=== PATIENT | male | born 1940 | race Caucasian/White ===

== ENCOUNTER 2017-02-07 16:18 | Inpatient (IN) | payer MEDICARE, MEDICAID ==
--- NOTE | 2017-02-07 16:34 | ED Physician Chart ---
Chief Complaint/HPI - Patient Information Date Seen:: 02/07/17 Time Seen:: 16:15 Chief Complaint:: agitation History of Present Illness:: onset x 2 days of agitation; no SIs reported; no C/P, dyspnea, Abd pain, A/N/V/D /C, fever, chills, ALOC, LOC Allergies:: Allergies Allergy/AdvReac Type Severity Reaction Status Date / Time codeine Allergy Verified 02/07/17 16:30 Historian:: Patient, EMS Review:: Nurse's Note Reviewed, EMS run form Reviewed, Transfer documents Reviewed Review of Systems - Review of Systems General/Constitutional: No fever, No chills, No weight loss, No weakness, No diaphoresis, No edema, No loss of appetite Skin: No skin lesions, No rash, No bruising Head: No headache, No light-headedness Eyes: No loss of vision, No pain, No diplopia ENT: No earache, No nasal drainage, No sore throat, No tinnitus Neck: No neck pain, No swelling, No thyromegaly, No stiffness, No mass noted Cardio Vascular: No chest pain, No palpitations, No PND, No orthopnea, No edema Pulmonary: No SOB, No cough, No sputum, No wheezing GI: No nausea, No vomiting, No diarrhea, No pain, No melena, No hematochezia, No constipation, No hematemesis G/U: No dysuria, No frequency, No hematuria Musculoskeletal: No bone or joint pain, No back pain, No muscle pain Endocrine: No polyuria, No polydipsia Psychiatric: Prior psych history, No prior psych history, Depression, No depression, Anxiety, No anxiety, No suicidal ideation Hematopoietic: No bruising, No lymphadenopathy Allergic/Immuno: No urticaria, No angioedema Neurological: No syncope, No focal symptoms, No weakness, No paresthesia, Headache, No headache, No seizure, No dizziness, Confusion, No confusion, No vertigo Past Medical History - Past Medical History Past Medical History: HTN, Dyslipidemia, Dementia Family History: Diabetes Melitus, HTN Social History: Smoker, Alcohol, No Drug Use, Single, Care Facility Surgical History: None Psychiatricy History: Depression, Bipolar, Dementia Medication: Reviewed Family Medical History - Family Member Mother History Unknown: Yes Physical Exam - Physical Examination General/Constitutional: Awake, Well-developed, well-nourished, Alert, No distress, GCS 15, Non-toxic appearing, Ambulatory Head: Atraumatic Eyes: Lids, conjuctiva normal, PERRL, EOMI Skin: Nl inspection, No rash, No skin lesions, No ecchymosis, Well hydrated, No lymphadenopathy ENMT: External ears, nose nl, Nasal exam nl, Lips, teeth, gums nl Neck: Nontender, Full ROM w/o pain, No JVD, No nuchal rigidity, No bruit, No mass, No stridor Respiratory: Nl effort/Exclusion, Clear to Auscultation, No Wheeze/Rhonchi/Rales Cardio Vascular: RRR, No murmur, gallop, rubs, NL S1 S2 GI: No tenderness/rebounding/guarding, No organomegaly, No hernia, Normal BS's, Nondistended, No mass/bruits, No McBurney tenderness : No CVA tenderness Extremities: No tenderness or effusion, Full ROM, normal strength in all extremities, No edema, Normal digits & nails Neuro/Psych: Alert/oriented, DTR's symmetric, Normal sensory exam, Normal motor strength, Judgement/insight normal, Mood normal, Normal gait, No focal deficits Other Neuro/Psych comments:: + Psychomotor Agitation Misc: normal gait, Normal back, No paraspinal tenderness ED Septic Shock - . Is Septic Shock (SBP<90, OR Lactate>4 mmol\L) present?: No - <6hrs of presentation: Assessment of Lungs: Lung CTA bilateral, Ventilator, Decreased BS, Rhonchi, No Rhonchi, Rales, No Rales, Wheezing, No Wheezing, Stridor, No Stridor, Other, Documented in PE Reassessment (Disposition) - Reassessment Reassessment Condition:: Improved - Diagnosis Diagnosis:: Psychmotor Agitation; Manic-Depression; Medically Cleared; pt to be admitted to Psychiatric Floor as an Inpatient - Patient Disposition Discharge/Transfer:: Acute Care w/in this hosp Accepting Physician:: Dr. Ho/ Dr. Delaney Time Called:: 1899 Time Responded:: 19:00 Admitted to:: Med/Surg Spoke to:: Dr. Ho/ Dr. Delaney ED Discharge Plan - Patient Disposition
[2017-02-07 16:54] LABS: % BASOPHILS 0.6 % (0.0-2.0); % EOSINOPHILS 5.6 % (0.0-5.0); % MONOCYTES 6.1 % (2.0-10.0); % NEUTROPHILS 36.7 % (40.0-80.0); HEMATOCRIT 40.7 % (39.0-49.0); HEMOGLOBIN 13.2 gm/dL (12.6-17.4); MEAN CELL VOLUME 88.2 fl (80-99); MEAN CORPUSCULAR HEMOGLOBIN 28.7 pg (27.0-31.0); MEAN CORPUSCULAR HGB CONC 32.5 pg (28.0-36.0); MEAN PLATELET VOLUME 7.9 fl; NEUTROPHILE ABSOLUTE 2.3 Th/cmm (1.8-8.0); PLATELET COUNT 329 Th/cmm (150-400); RED BLOOD COUNT 4.61 Mil/cmm (3.80-5.80); RED CELL DISTRIBUTION WIDTH 14.1 % (11.5-20.0); WHITE BLOOD COUNT 6.2 Th/cmm (4.8-10.8)
[2017-02-07 17:08] LABS: BUN - UREA NITROGEN 10 mg/dL (7-25); BUN/CREATININE RATIO 11.1; CALCIUM SERUM 9.8 mg/dL (8.6-10.3); CHLORIDE 103 mEq/L (98-107); CREATININE - SERUM 0.9 mg/dL (0.7-1.3); GLUCOSE 75 mg/dL (70-105); SODIUM SERUM 140 mEq/L (136-145)
[2017-02-07 18:08] LABS: URINE BILIRUBIN NEGATIVE (NEGATIVE); URINE BLOOD NEGATIVE (NEGATIVE); URINE COLOR YELLOW; URINE GLUCOSE (UA) NEGATIVE (NEGATIVE); URINE KETONE NEGATIVE (NEGATIVE); URINE PROTEIN NEGATIVE (NEGATIVE)
[2017-02-07 18:09] LABS: URINE BACTERIA NONE SEEN /hpf (NONE SEEN); URINE EPITHELIAL CELLS NONE SEEN /lpf (FEW); URINE RBC NONE SEEN /hpf (0-5)
[2017-02-07 18:23] LABS: AMPHETAMINE URINE NEGATIVE (NEGATIVE); BARBITURATES URINE NEGATIVE (NEGATIVE); METHADONE URINE NEGATIVE (NEGATIVE)
[2017-02-07] MEDS ORDERED: Maalox 30 mL Cup PO PRN (20:09)
[2017-02-07] MEDS ORDERED: Magnesium Hydroxide (MOM) 30 mL UDC PO PRN (20:09)
[2017-02-07] MEDS: INSULIN ASPART SLIDING SCALE 100 UNITS/ML UNIT SUBQ SCH ×2 (21:00→21:37)
[2017-02-07] MEDS: Insulin Detemir 100 units/mL 10mL Vial SUBQ SCH (21:37)
[2017-02-07 22:29] VITALS: BP 133/73
--- NOTE | 2017-02-07 22:44 | Admit Criteria Form ---
Admit Criteria Forms - Admit Criteria Diagnosis: PSYCHIATRIC DISORDERS Clinical Indications for Inpatient Care (Place 'X' for any and all applicable criteria): Ongoing inpatient care may be needed for ANY ONE of the following(1)(2)(3)(4)(6) (7)(8): [ ]I. Danger to self or others not manageable at lower level of care. [ ]II. Grave disability (eg, inability to perform self care necessary at lower level of care) [X]III. Agitation or inappropriate behavior interfering with care for primary condition (eg, attempting to discontinue lines or drains prematurely, unable to cooperate with respiratory care) [ ]IV. Severe disability or disorder indicated by ALL of the following: [ ]a) Severe behavioral health disorder-related symptoms or condition indicated by ANY ONE of the following: [ ]i) Severe problem with cognition, memory, judgment, or impulse control [ ]ii) Severe clinical manifestations (eg, hallucinations, delusions, other acute psychotic symptoms, sho, extreme agitation or anxiety) [ ]b) Patient management at lower level of care is not feasible until acute intervention or modification is initiated. Extended stay beyond goal length of stay for the primary condition may be indicated when ANY ONE of the following is present: (1)(2)(3)(4): [ ]a) Patient is a danger to self or others and not manageable at lower level of care. [ ]b) Behavior crisis management, including physical or chemical restraints, is required and is not available at a lower level of care. [ ]c) Behavioral symptoms (e.g., agitation, somnolence, inappropriate behavior) are present, and are not manageable at a lower level of care. [ ]d) Patient cannot understand follow-up treatment and crisis plan. [ ]e) Provider and supports are not sufficiently available at lower level of care. [ ]f) Patient cannot participate (e.g., verify absence of plan for harm) and is in needed of monitoring. The original [facility] [employer] content created by [facility] [employer] has been revised. The portions of the content which have been revised are identified through the use of italic text or in bold, and [facility] [employer] has neither reviewed nor approved the modified material. All other unmodified content is copyright [facility] [employer]. Please see references footnoted in the original [facility] edition 2016 Admit Criteria Met?: Yes
[2017-02-08] MEDS: INSULIN ASPART SLIDING SCALE 100 UNITS/ML UNIT SUBQ SCH ×5 (02:57→20:50)
[2017-02-08] MEDS ORDERED: INSULIN ASPART SLIDING SCALE 100 UNITS/ML UNIT SUBQ SCH (07:30)
[2017-02-08] MEDS ORDERED: Aspirin 81mg Chewable Tab PO SCH (09:00)
[2017-02-08] MEDS ORDERED: Pantoprazole 40 mg EC Tab PO SCH (09:00)
[2017-02-08] MEDS: Aspirin 81mg Chewable Tab PO SCH (09:37)
[2017-02-08] MEDS: Multivitamin Tab PO SCH (09:38)
[2017-02-08] MEDS: Pantoprazole 40 mg EC Tab PO SCH (09:39)
--- NOTE | 2017-02-08 14:56 | Psychosocial Evaluation ---
DATE OF SERVICE: 02/08/2017 IDENTIFYING INFORMATION: The patient is a 76-year-old male. CHIEF COMPLAINT: No answer. HISTORY OF PRESENT ILLNESS: The patient referred from [place] because of agitation, confusion, psychosis. The patient with advanced dementia and psychosis. The patient himself was a poor historian and was unable to participate in meaningful conversation. He was also sleepy. He is unpredictable, impulsive, ____ behavior at the nursing facility. PAST PSYCHIATRIC HISTORY: Psychosis and dementia. MEDICAL HISTORY: Deferred to the medical doctors. ALLERGIES: THE PATIENT IS ALLERGIC TO CODEINE. MEDICATIONS: The patient has been on Depakote 500 mg at bedtime, Aricept 5 mg at bedtime, Lexapro 10 mg daily, he is also a diabetic and is on insulin. FAMILY AND SOCIAL HISTORY: The patient has been living at the nursing facility. Unable to give for further information regarding his family history. MENTAL STATUS EXAMINATION: The patient is appropriately dressed, not very well groomed. He was in bed. He was sleepy. He was able to mumble, but he was unable to participate in a meaningful conversation. He has been very agitated at the [place] [facility], hard to redirect with a history of psychosis. He is not sleeping or eating well, was unable to test his memory. He is uncooperative. ____ is poor. His insight and judgment is impaired. IMPRESSION: AXIS I: Psychosis, not otherwise specified, dementia, rule out bipolar disorder. MEDICAL DIAGNOSIS: Diabetes mellitus. His assets, he is accepting treatment negative, poor coping. INITIAL TREATMENT PLAN: The patient was started back on his medication. We will do group therapy, milieu therapy. ESTIMATED LENGTH OF STAY: 3-7 days. DISCHARGE CRITERIA: Decreasing agitation, no longer aggressive. After discharge, outpatient. JOB# [id number]
[2017-02-08] MEDS ORDERED: Haloperidol Lactate 5 mg/mL 1mL Vial IM ONE (17:49)
[2017-02-08] MEDS ORDERED: Haloperidol Lactate 5 mg/mL 1mL Vial ONE (17:50)
--- NOTE | 2017-02-08 20:28 | History & Physical ---
ADMIT DATE: 02/08/2017 PATIENT IDENTIFICATION: This is a 76-year-old male. CHIEF COMPLAINT: None. HISTORY SOURCE: Reviewing the chart, talking to the patient and staff as well as the staff at [facility] who I follow him there. HISTORY OF PRESENT ILLNESS: This is a 76-year-old [place] male with advanced dementia, resides at [facility]. Noted by nursing staff at [facility], that the patient was extremely agitated and aggressive. The patient was hitting at the staff. The patient was sent to [facility] for evaluation. The patient had an initial blood test, which did not reveal any signs and symptoms of infection or any electrolyte imbalance. Due to his advanced dementia, the patient was advised to Geriatric psychiatric unit for further care. PAST MEDICAL HISTORY: Remarkable for: 1. Diabetes mellitus. 2. Hypertension. 3. BPH. 4. Coronary artery disease. 5. Degenerative joint disease. 6. Dysphagia. 7. Advanced Alzheimer's type dementia. MEDICATIONS AT RESIDENTIAL: The patient was taking multiple medications, which have been reviewed and reconciled appropriately. ALLERGIES: THE PATIENT IS ALLERGIC TO CODEINE. SOCIAL HISTORY: The patient resides at [facility]. No smoking. No alcohol or drug use. FAMILY MEDICAL HISTORY: Unavailable. REVIEW OF SYSTEMS: Unable to obtain meaningful history from the patient. PHYSICAL EXAMINATION: GENERAL: The patient is alert, awake, lying in the bed without any acute distress. VITAL SIGNS: Temperature 98.1, pulse 89, respiratory rate is respiratory rate 20, and blood pressure is 133/73. HEENT: Normocephalic and atraumatic. Extraocular muscles are intact. Tongue was pink and coated. Poor dentition noted. No oral lesions, no exudate. No sinus tenderness. External auditory canal and tympanic membranes are well visualized. NECK: Supple. No JVD. No hepatojugular reflex. No lymphadenopathy, thyromegaly, or carotid bruit. HEART: Both heart sounds are regular. Grade 3/6 systolic murmur noted. CHEST: Lung equal in expansion, no wheezing, and no crackles. ABDOMEN: Soft. No guarding and no rigidity. Bowel sounds are present. No palpable mass. EXTREMITIES: No edema, no cyanosis, and no clubbing. Peripheral pulses are +2. No calf tenderness noted. NEUROLOGIC: This patient is alert and awake, does not follow any commands. Moving upper and lower extremities without any difficulty. AVAILABLE DIAGNOSTIC DATA: Performed at [facility] has been reviewed. CLINICAL IMPRESSION: 1. Acute exacerbation of psychotic disorder. 2. Alzheimer dementia, advanced. 3. Diabetes mellitus. 4. Hypertension. 5. BPH. 6. Coronary artery disease. 7. Degenerative joint disease. 8. Hyperlipidemia. 9. Fall risk. 10. Dysphagia. PLAN: Psychotic evaluation and management has been deferred to psychiatrist. The patient will be resumed on his home medications for his medical illness, which includes aspirin, Depakote, Aricept, Lexapro, insulin, lorazepam, magnesium, potassium, pantoprazole, Ambien, metformin, and aspirin along with simvastatin 40 mg a day. Psychotic evaluation and management has been deferred to psychiatrist. Fall precautions have been given. The patient will be followed by us during his stay at the Geriatric Psychiatric unit at [facility]. Care plan has been reviewed and discussed. Medication list has been reviewed and reconciled. JOB# [id number]
[2017-02-08] MEDS: Insulin Detemir 100 units/mL 10mL Vial SUBQ SCH (20:52)
[2017-02-09] MEDS: INSULIN ASPART SLIDING SCALE 100 UNITS/ML UNIT SUBQ SCH ×4 (06:48→20:48)
--- NOTE | 2017-02-09 08:42 | General Progress Note ---
Subjective - Review of Systems Subjective: PATIENT IS SEEN AND EXAMINED. NON VERBAL. NO NEW EVENTS. Objective - Results Result Diagrams: 02/07/17 16:45 02/07/17 16:45 Recent Labs: Laboratory Last Values WBC 6.2 Th/cmm (4.8-10.8) 02/07/17 16:45 RBC 4.61 Mil/cmm (3.80-5.80) 02/07/17 16:45 Hgb 13.2 gm/dL (12.6-17.4) 02/07/17 16:45 Hct 40.7 % (39.0-49.0) 02/07/17 16:45 MCV 88.2 fl (80-99) 02/07/17 16:45 MCH 28.7 pg (27.0-31.0) 02/07/17 16:45 MCHC Differential 32.5 pg (28.0-36.0) 02/07/17 16:45 RDW 14.1 % (11.5-20.0) 02/07/17 16:45 Plt Count 329 Th/cmm (150-400) 02/07/17 16:45 MPV 7.9 fl 02/07/17 16:45 Neutrophils % 36.7 % (40.0-80.0) L 02/07/17 16:45 Lymphocytes % 51.0 % (20.0-50.0) H 02/07/17 16:45 Monocytes % 6.1 % (2.0-10.0) 02/07/17 16:45 Eosinophils % 5.6 % (0.0-5.0) H 02/07/17 16:45 Basophils % 0.6 % (0.0-2.0) 02/07/17 16:45 Sodium 140 mEq/L (136-145) 02/07/17 16:45 Potassium 4.0 mEq/L (3.5-5.1) 02/07/17 16:45 Chloride 103 mEq/L (98-107) 02/07/17 16:45 Carbon Dioxide 31.0 mEq/L (21.0-31.0) 02/07/17 16:45 Anion Gap 10.0 (7.0-16.0) 02/07/17 16:45 BUN 10 mg/dL (7-25) 02/07/17 16:45 Creatinine 0.9 mg/dL (0.7-1.3) 02/07/17 16:45 Est GFR ( Amer) TNP 02/07/17 16:45 Est GFR (Non-Af Amer) TNP 02/07/17 16:45 BUN/Creatinine Ratio 11.1 02/07/17 16:45 Glucose 75 mg/dL (70-105) 02/07/17 16:45 POC Glucose 126 MG/DL (70 - 105) H 02/09/17 06:23 Calcium 9.8 mg/dL (8.6-10.3) 02/07/17 16:45 Urine Source CLEAN C 02/07/17 17:15 Urine Color YELLOW 02/07/17 17:15 Urine Clarity CLEAR (CLEAR) 02/07/17 17:15 Urine pH 6.0 02/07/17 17:15 Ur Specific [place] 1.015 (1.005-1.030) 02/07/17 17:15 Urine Protein NEGATIVE mg/dL (NEGATIVE) 02/07/17 17:15 Urine Glucose (UA) NEGATIVE mg/dL (NEGATIVE) 02/07/17 17:15 Urine Ketones NEGATIVE mg/dL (NEGATIVE) 02/07/17 17:15 Urine Blood NEGATIVE (NEGATIVE) 02/07/17 17:15 Urine Nitrate NEGATIVE (NEGATIVE) 02/07/17 17:15 Urine Bilirubin NEGATIVE (NEGATIVE) 02/07/17 17:15 Urine Urobilinogen 1.0 E.U./dL (0.2 - 1.0) 02/07/17 17:15 Ur Leukocyte Esterase TRACE (NEGATIVE) H 02/07/17 17:15 Urine RBC NONE SEEN /hpf (0-5) 02/07/17 17:15 Urine WBC 2-5 /hpf (0-5) H 02/07/17 17:15 Ur Epithelial Cells NONE SEEN /lpf (FEW) 02/07/17 17:15 Urine Bacteria NONE SEEN /hpf (NONE SEEN) 02/07/17 17:15 Urine Opiates Screen NEGATIVE (NEGATIVE) 02/07/17 17:15 Urine Methadone Screen NEGATIVE (NEGATIVE) 02/07/17 17:15 Ur Barbiturates Screen NEGATIVE (NEGATIVE) 02/07/17 17:15 Valproic Acid 25.8 ug/mL (50.0-100.0) L 02/07/17 16:45 Ur Tricyclics Screen NEGATIVE (NEGATIVE) 02/07/17 17:15 Ur Phencyclidine Scrn NEGATIVE (NEGATIVE) 02/07/17 17:15 Amphetamines Screen NEGATIVE (NEGATIVE) 02/07/17 17:15 U Methamphetamines Scrn NEGATIVE (NEGATIVE) 02/07/17 17:15 U Benzodiazepines Scrn POSITIVE (NEGATIVE) H 02/07/17 17:15 U Cocaine Metab Screen NEGATIVE (NEGATIVE) 02/07/17 17:15 U Cannabinoids Screen NEGATIVE (NEGATIVE) 02/07/17 17:15 Ethyl Alcohol < 10 mg/dL (0-10) 02/07/17 16:45 - Physical Exam Vitals and I&O: Vital Signs Temp 97.8 F 02/08/17 14:00 Pulse 71 02/08/17 14:00 Resp 20 02/08/17 20:00 BP 120/70 02/08/17 14:00 Pulse Ox 96 02/08/17 14:00 Intake & Output 02/08/17 02/09/17 02/09/17 18:59 06:59 18:59 Intake Total 960 Balance 960 Intake: Oral 960 Other: # Voids 4 # Bowel Movements 1 Active Medications: Current Medications Al Hydrox/Mg Hydrox/Simethicone (Maalox) 30 ml PO Q4HR PRN PRN Reason: GI DISTRESS Stop: 04/08/17 20:08 Aspirin (Aspirin Chewable) 81 mg PO DAILY FEI Stop: 04/09/17 08:59 Last Admin: 02/08/17 09:37 Dose: Not Given Divalproex Sodium (Depakote Sprinkle) 500 mg PO HS FEI PRN Reason: Protocol Stop: 04/09/17 20:59 Last Admin: 02/08/17 20:51 Dose: 500 mg Donepezil HCl (Aricept) 5 mg PO HS FEI Stop: 04/09/17 20:59 Last Admin: 02/08/17 20:51 Dose: 5 mg Escitalopram Oxalate (Lexapro) 10 mg PO DAILY FEI PRN Reason: Protocol Stop: 04/09/17 08:59 Last Admin: 02/08/17 09:38 Dose: Not Given Insulin Aspart (Novolog Insulin Sliding Scale) 0 units SUBQ ACHS FEI PRN Reason: Protocol Stop: 04/08/17 20:59 Last Admin: 02/09/17 06:48 Dose: Not Given Insulin Detemir (Levemir Insulin) 10 units SUBQ HS FEI PRN Reason: Protocol Stop: 04/08/17 20:59 Last Admin: 02/08/17 20:52 Dose: 10 units Lorazepam (Ativan) 0.5 mg PO Q4HR PRN; Protocol PRN Reason: Anxiety Stop: 03/09/17 20:08 Last Admin: 02/08/17 17:28 Dose: 0.5 mg Metformin HCl (Glucophage) 500 mg PO BIDWM FEI Stop: 04/09/17 07:59 Last Admin: 02/08/17 17:28 Dose: 500 mg Multivitamins/Vitamin C (Theragran) 1 tab PO DAILY FEI Stop: 04/09/17 08:59 Last Admin: 02/08/17 09:38 Dose: Not Given Pantoprazole Sodium (Protonix) 40 mg PO DAILY [facility] Stop: 04/09/17 08:59 Last Admin: 02/08/17 09:39 Dose: Not Given Zolpidem Tartrate (Ambien) 5 mg PO HS PRN PRN Reason: Insomnia Stop: 04/08/17 20:08 Last Admin: 02/07/17 21:57 Dose: 5 mg General: Alert, No acute distress HEENT: Atraumatic, PERRLA, EOMI Neck: Supple Cardiovascular: Regular rate, Normal S1, Normal S2 Lungs: Clear to auscultation Abdomen: Soft Neurological: Other (advanced dementia) - Procedures Procedures: Procedures Procedure Code Date ECG MONIT/REPRT UP TO 48 HRS 21518 09/05/95 ELECTROCARDIOGRAPH MONIT 89.54 09/05/95 Assessment/Plan - Problem List Patient Problems: All Active Problems AGITATION AND STRIKING OUT BEHAVIOR (Acute) - Assessment Assessment: DIABETES HTN BPH CAD DJD DEMENTIA PSYCH DISORDER FALL RISK DEBILITY - Plan Plan: MONITOR GLUCOSE AND VITALS FALL PRECAUTIONS GENERAL NURSING CARE PSYCH MEDS PSYH FOLLOW UP INSULIN THERAPY MEDICAL MANAGEMENT SYMPTOMS CONTROL CONTINUE CURRENT CARE DISCUSSE WITH STAFF.
[2017-02-09] MEDS: Aspirin 81mg Chewable Tab PO SCH (09:38)
[2017-02-09] MEDS: Multivitamin Tab PO SCH (09:38)
[2017-02-09] MEDS: Pantoprazole 40 mg EC Tab PO SCH (09:38)
[2017-02-09] MEDS: Insulin Detemir 100 units/mL 10mL Vial SUBQ SCH (20:49)
--- NOTE | 2017-02-10 03:55 | Progress Notes ---
DATE: 02/09/2017 Case was discussed with staff of the patient, reviewed records. Also, met with his who happened to be there. The reported that the patient has been in and out of the hospital every 2 weeks and unable to be stable. He cannot even recognize her. He continues to be unpredictable and impulsive. Yesterday, he had to be medicated because of his agitation, acting out behavior. He has been so far compliant with the medication with no side effects, no sedation, no nausea, and no extrapyramidal symptoms. He is on Depakote. He is on Aricept 5 mg at bedtime, Lexapro 10 mg daily, and he did get Haldol, Ativan, and Benadryl yesterday with no side effects, no sedation, no nausea, and we will continue to work with the patient in group therapy, milieu therapy, and adjust medication as needed. JOB# [id number]
[2017-02-10] MEDS: INSULIN ASPART SLIDING SCALE 100 UNITS/ML UNIT SUBQ SCH ×4 (06:48→20:35)
[2017-02-10] MEDS: Pantoprazole 40 mg EC Tab PO SCH (08:10)
[2017-02-10] MEDS: Aspirin 81mg Chewable Tab PO SCH (08:10)
[2017-02-10] MEDS: Multivitamin Tab PO SCH (08:10)
--- NOTE | 2017-02-10 09:03 | General Progress Note ---
Subjective - Review of Systems Subjective: PATIENT IS SEEN AND EXAMINED. NON VERBAL. NO NEW EVENTS. Objective - Results Result Diagrams: 02/07/17 16:45 02/07/17 16:45 Recent Labs: Laboratory Last Values WBC 6.2 Th/cmm (4.8-10.8) 02/07/17 16:45 RBC 4.61 Mil/cmm (3.80-5.80) 02/07/17 16:45 Hgb 13.2 gm/dL (12.6-17.4) 02/07/17 16:45 Hct 40.7 % (39.0-49.0) 02/07/17 16:45 MCV 88.2 fl (80-99) 02/07/17 16:45 MCH 28.7 pg (27.0-31.0) 02/07/17 16:45 MCHC Differential 32.5 pg (28.0-36.0) 02/07/17 16:45 RDW 14.1 % (11.5-20.0) 02/07/17 16:45 Plt Count 329 Th/cmm (150-400) 02/07/17 16:45 MPV 7.9 fl 02/07/17 16:45 Neutrophils % 36.7 % (40.0-80.0) L 02/07/17 16:45 Lymphocytes % 51.0 % (20.0-50.0) H 02/07/17 16:45 Monocytes % 6.1 % (2.0-10.0) 02/07/17 16:45 Eosinophils % 5.6 % (0.0-5.0) H 02/07/17 16:45 Basophils % 0.6 % (0.0-2.0) 02/07/17 16:45 Sodium 140 mEq/L (136-145) 02/07/17 16:45 Potassium 4.0 mEq/L (3.5-5.1) 02/07/17 16:45 Chloride 103 mEq/L (98-107) 02/07/17 16:45 Carbon Dioxide 31.0 mEq/L (21.0-31.0) 02/07/17 16:45 Anion Gap 10.0 (7.0-16.0) 02/07/17 16:45 BUN 10 mg/dL (7-25) 02/07/17 16:45 Creatinine 0.9 mg/dL (0.7-1.3) 02/07/17 16:45 Est GFR ( Amer) TNP 02/07/17 16:45 Est GFR (Non-Af Amer) TNP 02/07/17 16:45 BUN/Creatinine Ratio 11.1 02/07/17 16:45 Glucose 75 mg/dL (70-105) 02/07/17 16:45 POC Glucose 93 MG/DL (70 - 105) 02/10/17 06:09 Calcium 9.8 mg/dL (8.6-10.3) 02/07/17 16:45 Urine Source CLEAN C 02/07/17 17:15 Urine Color YELLOW 02/07/17 17:15 Urine Clarity CLEAR (CLEAR) 02/07/17 17:15 Urine pH 6.0 02/07/17 17:15 Ur Specific [place] 1.015 (1.005-1.030) 02/07/17 17:15 Urine Protein NEGATIVE mg/dL (NEGATIVE) 02/07/17 17:15 Urine Glucose (UA) NEGATIVE mg/dL (NEGATIVE) 02/07/17 17:15 Urine Ketones NEGATIVE mg/dL (NEGATIVE) 02/07/17 17:15 Urine Blood NEGATIVE (NEGATIVE) 02/07/17 17:15 Urine Nitrate NEGATIVE (NEGATIVE) 02/07/17 17:15 Urine Bilirubin NEGATIVE (NEGATIVE) 02/07/17 17:15 Urine Urobilinogen 1.0 E.U./dL (0.2 - 1.0) 02/07/17 17:15 Ur Leukocyte Esterase TRACE (NEGATIVE) H 02/07/17 17:15 Urine RBC NONE SEEN /hpf (0-5) 02/07/17 17:15 Urine WBC 2-5 /hpf (0-5) H 02/07/17 17:15 Ur Epithelial Cells NONE SEEN /lpf (FEW) 02/07/17 17:15 Urine Bacteria NONE SEEN /hpf (NONE SEEN) 02/07/17 17:15 Urine Opiates Screen NEGATIVE (NEGATIVE) 02/07/17 17:15 Urine Methadone Screen NEGATIVE (NEGATIVE) 02/07/17 17:15 Ur Barbiturates Screen NEGATIVE (NEGATIVE) 02/07/17 17:15 Valproic Acid 25.8 ug/mL (50.0-100.0) L 02/07/17 16:45 Ur Tricyclics Screen NEGATIVE (NEGATIVE) 02/07/17 17:15 Ur Phencyclidine Scrn NEGATIVE (NEGATIVE) 02/07/17 17:15 Amphetamines Screen NEGATIVE (NEGATIVE) 02/07/17 17:15 U Methamphetamines Scrn NEGATIVE (NEGATIVE) 02/07/17 17:15 U Benzodiazepines Scrn POSITIVE (NEGATIVE) H 02/07/17 17:15 U Cocaine Metab Screen NEGATIVE (NEGATIVE) 02/07/17 17:15 U Cannabinoids Screen NEGATIVE (NEGATIVE) 02/07/17 17:15 Ethyl Alcohol < 10 mg/dL (0-10) 02/07/17 16:45 - Physical Exam Vitals and I&O: Vital Signs Temp 97.2 F 02/10/17 06:42 Pulse 83 02/10/17 06:42 Resp 20 02/10/17 06:42 BP 133/74 02/10/17 06:42 Pulse Ox 98 02/10/17 06:42 Intake & Output 02/09/17 02/10/17 02/10/17 18:59 06:59 18:59 Intake Total 1000 120 Balance 1000 120 Intake: Oral 1000 120 Other: # Voids 3 3 # Bowel Movements 2 Active Medications: Current Medications Al Hydrox/Mg Hydrox/Simethicone (Maalox) 30 ml PO Q4HR PRN PRN Reason: GI DISTRESS Stop: 04/08/17 20:08 Aspirin (Aspirin Chewable) 81 mg PO DAILY FEI Stop: 04/09/17 08:59 Last Admin: 02/10/17 08:10 Dose: 81 mg Divalproex Sodium (Depakote Sprinkle) 500 mg PO HS FEI PRN Reason: Protocol Stop: 04/09/17 20:59 Last Admin: 02/09/17 20:46 Dose: 500 mg Donepezil HCl (Aricept) 5 mg PO HS FEI Stop: 04/09/17 20:59 Last Admin: 02/09/17 20:47 Dose: 5 mg Escitalopram Oxalate (Lexapro) 10 mg PO DAILY FEI PRN Reason: Protocol Stop: 04/09/17 08:59 Last Admin: 02/10/17 08:10 Dose: 10 mg Insulin Aspart (Novolog Insulin Sliding Scale) 0 units SUBQ ACHS FEI PRN Reason: Protocol Stop: 04/08/17 20:59 Last Admin: 02/10/17 06:48 Dose: Not Given Insulin Detemir (Levemir Insulin) 10 units SUBQ HS FEI PRN Reason: Protocol Stop: 04/08/17 20:59 Last Admin: 02/09/17 20:49 Dose: 10 units Lorazepam (Ativan) 0.5 mg PO Q4HR PRN; Protocol PRN Reason: Anxiety Stop: 03/09/17 20:08 Last Admin: 02/10/17 08:24 Dose: 0.5 mg Metformin HCl (Glucophage) 500 mg PO BIDWM FEI Stop: 04/09/17 07:59 Last Admin: 02/10/17 08:10 Dose: 500 mg Multivitamins/Vitamin C (Theragran) 1 tab PO DAILY FEI Stop: 04/09/17 08:59 Last Admin: 02/10/17 08:10 Dose: 1 tab Pantoprazole Sodium (Protonix) 40 mg PO DAILY [facility] Stop: 04/09/17 08:59 Last Admin: 02/10/17 08:10 Dose: 40 mg Zolpidem Tartrate (Ambien) 5 mg PO HS PRN PRN Reason: Insomnia Stop: 04/08/17 20:08 Last Admin: 02/07/17 21:57 Dose: 5 mg General: Alert, No acute distress HEENT: Atraumatic Neck: Supple Cardiovascular: Regular rate, Normal S1, Normal S2 Lungs: Clear to auscultation Abdomen: Bowel sounds, Soft Extremities: Other (NO edema+) - Procedures Procedures: Procedures Procedure Code Date ECG MONIT/REPRT UP TO 48 HRS 24111 09/05/95 ELECTROCARDIOGRAPH MONIT 89.54 09/05/95 Assessment/Plan - Problem List Patient Problems: All Active Problems AGITATION AND STRIKING OUT BEHAVIOR (Acute) - Assessment Assessment: DIABETES HTN BPH CAD DJD DEMENTIA PSYCH DISORDER FALL RISK DEBILITY - Plan Plan: MONITOR GLUCOSE AND VITALS FALL PRECAUTIONS GENERAL NURSING CARE PSYCH MEDS PSYCH FOLLOW UP INSULIN THERAPY MEDICAL MANAGEMENT SYMPTOMS CONTROL CONTINUE CURRENT CARE DISCUSSE WITH STAFF.
[2017-02-10] MEDS: Insulin Detemir 100 units/mL 10mL Vial SUBQ SCH (20:33)
--- NOTE | 2017-02-11 04:56 | Progress Notes ---
DATE: 02/10/2017 Case was discussed with staff of the patient, reviewed records. The patient continues to have episodes of agitation and irritability. Continues to have poor insight and easily agitated. Continues to need redirection. The patient came from [place], and apparently, he could not recognize his . He is confused and demented, easily agitated. He has been compliant with the medication with no side effects, no sedation, and no nausea. I will be increasing his Aricept dose to 10 mg at bedtime, and he needs total help with his ADLs, and we will continue to work with the patient in group therapy, milieu therapy, and adjust the medication as needed. JOB# [id number]
[2017-02-11] MEDS: INSULIN ASPART SLIDING SCALE 100 UNITS/ML UNIT SUBQ SCH ×4 (06:40→21:30)
[2017-02-11] MEDS: Aspirin 81mg Chewable Tab PO SCH (08:58)
[2017-02-11] MEDS: Pantoprazole 40 mg EC Tab PO SCH (08:59)
[2017-02-11] MEDS: Multivitamin Tab PO SCH (08:59)
[2017-02-11] MEDS ORDERED: Magnesium Hydroxide (MOM) 30 mL UDC PO PRN (17:13)
[2017-02-11] MEDS: Insulin Detemir 100 units/mL 10mL Vial SUBQ SCH (21:38)
--- NOTE | 2017-02-11 22:04 | Progress Notes ---
DATE: 02/11/[address] Delaney. Case was discussed with staff of the patient, reviewed records. The patient continues to be confused, demented, and unable to participate in meaningful conversation or make safe plan for self-care. He did not recognize his family. He is on Aricept 10 mg at bedtime. He is also on Depakote 500 mg at bedtime and Lexapro 10 mg daily. I will be initiating Namenda on this patient to help so far no side effects with the other medication, no sedation, and no nausea. His creatinine level is within normal range so he does not have any kidney problems. Depakote level is 25.8. However, he is on Depakote for behavior issues and not because of seizures, so we will watch the patient at [facility] at this point and so far no side effects with the medication, no sedation, and no nausea. His CBC shows low neutrophil and high lymphocyte, high eosinophil. His urinalysis shows trace of leukocytic esterase. Depakote level is 25.8, which is low; however, I will keep him on that level at this point and chemistry panel within normal range. We will continue to work with the patient in group therapy, milieu therapy, and adjust the medication as needed. JOB# [id number]
[2017-02-12] MEDS: INSULIN ASPART SLIDING SCALE 100 UNITS/ML UNIT SUBQ SCH ×4 (07:41→21:00)
[2017-02-12] MEDS: Multivitamin Tab PO SCH (08:32)
[2017-02-12] MEDS: Aspirin 81mg Chewable Tab PO SCH (08:32)
[2017-02-12] MEDS: Pantoprazole 40 mg EC Tab PO SCH (08:34)
[2017-02-12] MEDS: Insulin Detemir 100 units/mL 10mL Vial SUBQ SCH (21:00)
--- NOTE | 2017-02-13 04:44 | Progress Notes ---
DATE: 02/12/2017 Case was discussed with staff of the patient, reviewed records. The patient continues to be unable to take care of himself ____ explain to himself. He cannot recognize his family. He is demented and confused. I did initiate Namenda on him. He is compliant with the medication with no side effects. Continues to ____ help with his ADLs, unpredictable, impulsive, poor insight. So far he is compliant with the medication with no side effects, no sedation, no nausea and no extrapyramidal symptoms. We will continue to work with the patient in group therapy, milieu therapy and adjust medication as needed. JOB# [id number]
[2017-02-13] MEDS: INSULIN ASPART SLIDING SCALE 100 UNITS/ML UNIT SUBQ SCH ×4 (07:06→20:25)
--- NOTE | 2017-02-13 09:40 | General Progress Note ---
Subjective - Review of Systems Subjective: PATIENT IS SEEN AND EXAMINED. NON VERBAL. NO NEW EVENTS. Objective - Results Result Diagrams: 02/07/17 16:45 02/07/17 16:45 Recent Labs: Laboratory Last Values WBC 6.2 Th/cmm (4.8-10.8) 02/07/17 16:45 RBC 4.61 Mil/cmm (3.80-5.80) 02/07/17 16:45 Hgb 13.2 gm/dL (12.6-17.4) 02/07/17 16:45 Hct 40.7 % (39.0-49.0) 02/07/17 16:45 MCV 88.2 fl (80-99) 02/07/17 16:45 MCH 28.7 pg (27.0-31.0) 02/07/17 16:45 MCHC Differential 32.5 pg (28.0-36.0) 02/07/17 16:45 RDW 14.1 % (11.5-20.0) 02/07/17 16:45 Plt Count 329 Th/cmm (150-400) 02/07/17 16:45 MPV 7.9 fl 02/07/17 16:45 Neutrophils % 36.7 % (40.0-80.0) L 02/07/17 16:45 Lymphocytes % 51.0 % (20.0-50.0) H 02/07/17 16:45 Monocytes % 6.1 % (2.0-10.0) 02/07/17 16:45 Eosinophils % 5.6 % (0.0-5.0) H 02/07/17 16:45 Basophils % 0.6 % (0.0-2.0) 02/07/17 16:45 Sodium 140 mEq/L (136-145) 02/07/17 16:45 Potassium 4.0 mEq/L (3.5-5.1) 02/07/17 16:45 Chloride 103 mEq/L (98-107) 02/07/17 16:45 Carbon Dioxide 31.0 mEq/L (21.0-31.0) 02/07/17 16:45 Anion Gap 10.0 (7.0-16.0) 02/07/17 16:45 BUN 10 mg/dL (7-25) 02/07/17 16:45 Creatinine 0.9 mg/dL (0.7-1.3) 02/07/17 16:45 Est GFR ( Amer) TNP 02/07/17 16:45 Est GFR (Non-Af Amer) TNP 02/07/17 16:45 BUN/Creatinine Ratio 11.1 02/07/17 16:45 Glucose 75 mg/dL (70-105) 02/07/17 16:45 POC Glucose 102 MG/DL (70 - 105) 02/13/17 06:02 Calcium 9.8 mg/dL (8.6-10.3) 02/07/17 16:45 Urine Source CLEAN C 02/07/17 17:15 Urine Color YELLOW 02/07/17 17:15 Urine Clarity CLEAR (CLEAR) 02/07/17 17:15 Urine pH 6.0 02/07/17 17:15 Ur Specific [place] 1.015 (1.005-1.030) 02/07/17 17:15 Urine Protein NEGATIVE mg/dL (NEGATIVE) 02/07/17 17:15 Urine Glucose (UA) NEGATIVE mg/dL (NEGATIVE) 02/07/17 17:15 Urine Ketones NEGATIVE mg/dL (NEGATIVE) 02/07/17 17:15 Urine Blood NEGATIVE (NEGATIVE) 02/07/17 17:15 Urine Nitrate NEGATIVE (NEGATIVE) 02/07/17 17:15 Urine Bilirubin NEGATIVE (NEGATIVE) 02/07/17 17:15 Urine Urobilinogen 1.0 E.U./dL (0.2 - 1.0) 02/07/17 17:15 Ur Leukocyte Esterase TRACE (NEGATIVE) H 02/07/17 17:15 Urine RBC NONE SEEN /hpf (0-5) 02/07/17 17:15 Urine WBC 2-5 /hpf (0-5) H 02/07/17 17:15 Ur Epithelial Cells NONE SEEN /lpf (FEW) 02/07/17 17:15 Urine Bacteria NONE SEEN /hpf (NONE SEEN) 02/07/17 17:15 Urine Opiates Screen NEGATIVE (NEGATIVE) 02/07/17 17:15 Urine Methadone Screen NEGATIVE (NEGATIVE) 02/07/17 17:15 Ur Barbiturates Screen NEGATIVE (NEGATIVE) 02/07/17 17:15 Valproic Acid 25.8 ug/mL (50.0-100.0) L 02/07/17 16:45 Ur Tricyclics Screen NEGATIVE (NEGATIVE) 02/07/17 17:15 Ur Phencyclidine Scrn NEGATIVE (NEGATIVE) 02/07/17 17:15 Amphetamines Screen NEGATIVE (NEGATIVE) 02/07/17 17:15 U Methamphetamines Scrn NEGATIVE (NEGATIVE) 02/07/17 17:15 U Benzodiazepines Scrn POSITIVE (NEGATIVE) H 02/07/17 17:15 U Cocaine Metab Screen NEGATIVE (NEGATIVE) 02/07/17 17:15 U Cannabinoids Screen NEGATIVE (NEGATIVE) 02/07/17 17:15 Ethyl Alcohol < 10 mg/dL (0-10) 02/07/17 16:45 - Physical Exam Vitals and I&O: Vital Signs Temp 97.9 F 02/13/17 06:19 Pulse 84 02/13/17 06:19 Resp 19 02/13/17 06:19 BP 117/64 02/13/17 06:19 Pulse Ox 94 02/13/17 06:19 Intake & Output 02/12/17 02/13/17 02/13/17 18:59 06:59 18:59 Intake Total 800 240 Output Total 1 Balance 800 239 Intake: Oral 800 240 Output: Stool 1 Other: # Voids 4 2 # Bowel Movements 2 1 Active Medications: Current Medications Al Hydrox/Mg Hydrox/Simethicone (Maalox) 30 ml PO Q4HR PRN PRN Reason: GI DISTRESS Stop: 04/08/17 20:08 Aspirin (Aspirin Chewable) 81 mg PO DAILY [facility] Stop: 04/09/17 08:59 Last Admin: 02/12/17 08:32 Dose: 81 mg Divalproex Sodium (Depakote Sprinkle) 500 mg PO HS FEI PRN Reason: Protocol Stop: 04/09/17 20:59 Last Admin: 02/12/17 21:14 Dose: 500 mg Donepezil HCl (Aricept) 10 mg PO HS [facility] Stop: 04/11/17 12:05 Last Admin: 02/12/17 21:15 Dose: 10 mg Escitalopram Oxalate (Lexapro) 10 mg PO DAILY FEI PRN Reason: Protocol Stop: 04/09/17 08:59 Last Admin: 02/12/17 08:32 Dose: 10 mg Insulin Aspart (Novolog Insulin Sliding Scale) 0 units SUBQ ACHS FEI PRN Reason: Protocol Stop: 04/08/17 20:59 Last Admin: 02/13/17 07:06 Dose: Not Given Insulin Detemir (Levemir Insulin) 10 units SUBQ HS FEI PRN Reason: Protocol Stop: 04/08/17 20:59 Last Admin: 02/12/17 21:00 Dose: 10 units Lorazepam (Ativan) 0.5 mg PO Q4HR PRN; Protocol PRN Reason: Anxiety Stop: 03/09/17 20:08 Last Admin: 02/12/17 08:34 Dose: 0.5 mg Magnesium Hydroxide (Milk Of Magnesia) 30 ml PO DAILY PRN PRN Reason: Constipation Stop: 04/12/17 17:12 Memantine (Namenda) 5 mg PO DAILY FEI Stop: 04/13/17 08:59 Last Admin: 02/12/17 08:32 Dose: 5 mg Metformin HCl (Glucophage) 500 mg PO BIDWM FEI Stop: 04/09/17 07:59 Last Admin: 02/13/17 08:49 Dose: 500 mg Multivitamins/Vitamin C (Theragran) 1 tab PO DAILY FEI Stop: 04/09/17 08:59 Last Admin: 02/12/17 08:32 Dose: 1 tab Pantoprazole Sodium (Protonix) 40 mg PO DAILY [facility] Stop: 04/09/17 08:59 Last Admin: 02/12/17 08:34 Dose: 40 mg Zolpidem Tartrate (Ambien) 5 mg PO HS PRN PRN Reason: Insomnia Stop: 04/08/17 20:08 Last Admin: 02/07/17 21:57 Dose: 5 mg General: Alert, Cooperative, No acute distress HEENT: Atraumatic, PERRLA, EOMI Neck: Supple Cardiovascular: Regular rate, Normal S1, Normal S2 Lungs: Clear to auscultation Abdomen: Bowel sounds, Soft Extremities: Other (no edema+) Neurological: Other (marked dementia.) - Procedures Procedures: Procedures Procedure Code Date ECG MONIT/REPRT UP TO 48 HRS 63817 09/05/95 ELECTROCARDIOGRAPH MONIT 89.54 09/05/95 Assessment/Plan - Problem List Patient Problems: All Active Problems AGITATION AND STRIKING OUT BEHAVIOR (Acute) - Assessment Assessment: DIABETES HTN BPH CAD DJD DEMENTIA PSYCH DISORDER FALL RISK DEBILITY - Plan Plan: MONITOR GLUCOSE AND VITALS FALL PRECAUTIONS GENERAL NURSING CARE PSYCH MEDS PSYCH FOLLOW UP INSULIN THERAPY MEDICAL MANAGEMENT SYMPTOMS CONTROL CONTINUE CURRENT CARE DISCUSSE WITH STAFF.
[2017-02-13] MEDS: Multivitamin Tab PO SCH (09:51)
[2017-02-13] MEDS: Aspirin 81mg Chewable Tab PO SCH (09:51)
[2017-02-13] MEDS: Pantoprazole 40 mg EC Tab PO SCH (09:51)
[2017-02-13] MEDS: Insulin Detemir 100 units/mL 10mL Vial SUBQ SCH (20:26)
--- NOTE | 2017-02-14 06:01 | Progress Notes ---
DATE: 02/13/2017 Case discussed with staff of the patient ____. The patient continues to be confused, easily agitated, irritable, unable to participate in meaningful conversation or make safe plan for self-care. He is sleeping well, eating well. We did initiate Namenda on him yesterday and he has already on Aricept 10 mg at bedtime. He was unable to recognize his family, very demented, confused, unpredictable, impulsive. No side effects with the medication, no sedation, no nausea, no extrapyramidal symptoms and we will continue to work with the patient in group therapy, milieu therapy, adjust the medication as needed. JOB# [id number]
[2017-02-14] MEDS: INSULIN ASPART SLIDING SCALE 100 UNITS/ML UNIT SUBQ SCH ×4 (06:49→20:18)
[2017-02-14] MEDS: Pantoprazole 40 mg EC Tab PO SCH (09:31)
[2017-02-14] MEDS: Multivitamin Tab PO SCH (09:31)
[2017-02-14] MEDS: Aspirin 81mg Chewable Tab PO SCH (09:31)
--- NOTE | 2017-02-14 18:41 | General Progress Note ---
Subjective - Review of Systems Subjective: PATIENT IS SEEN AND EXAMINED. NON VERBAL. NO NEW EVENTS. AVAILABLE CHART REVIEWED. Objective - Results Result Diagrams: 02/07/17 16:45 02/07/17 16:45 Recent Labs: Laboratory Last Values WBC 6.2 Th/cmm (4.8-10.8) 02/07/17 16:45 RBC 4.61 Mil/cmm (3.80-5.80) 02/07/17 16:45 Hgb 13.2 gm/dL (12.6-17.4) 02/07/17 16:45 Hct 40.7 % (39.0-49.0) 02/07/17 16:45 MCV 88.2 fl (80-99) 02/07/17 16:45 MCH 28.7 pg (27.0-31.0) 02/07/17 16:45 MCHC Differential 32.5 pg (28.0-36.0) 02/07/17 16:45 RDW 14.1 % (11.5-20.0) 02/07/17 16:45 Plt Count 329 Th/cmm (150-400) 02/07/17 16:45 MPV 7.9 fl 02/07/17 16:45 Neutrophils % 36.7 % (40.0-80.0) L 02/07/17 16:45 Lymphocytes % 51.0 % (20.0-50.0) H 02/07/17 16:45 Monocytes % 6.1 % (2.0-10.0) 02/07/17 16:45 Eosinophils % 5.6 % (0.0-5.0) H 02/07/17 16:45 Basophils % 0.6 % (0.0-2.0) 02/07/17 16:45 Sodium 140 mEq/L (136-145) 02/07/17 16:45 Potassium 4.0 mEq/L (3.5-5.1) 02/07/17 16:45 Chloride 103 mEq/L (98-107) 02/07/17 16:45 Carbon Dioxide 31.0 mEq/L (21.0-31.0) 02/07/17 16:45 Anion Gap 10.0 (7.0-16.0) 02/07/17 16:45 BUN 10 mg/dL (7-25) 02/07/17 16:45 Creatinine 0.9 mg/dL (0.7-1.3) 02/07/17 16:45 Est GFR ( Amer) TNP 02/07/17 16:45 Est GFR (Non-Af Amer) TNP 02/07/17 16:45 BUN/Creatinine Ratio 11.1 02/07/17 16:45 Glucose 75 mg/dL (70-105) 02/07/17 16:45 POC Glucose 116 MG/DL (70 - 105) H 02/14/17 16:50 Calcium 9.8 mg/dL (8.6-10.3) 02/07/17 16:45 Urine Source CLEAN C 02/07/17 17:15 Urine Color YELLOW 02/07/17 17:15 Urine Clarity CLEAR (CLEAR) 02/07/17 17:15 Urine pH 6.0 02/07/17 17:15 Ur Specific [place] 1.015 (1.005-1.030) 02/07/17 17:15 Urine Protein NEGATIVE mg/dL (NEGATIVE) 02/07/17 17:15 Urine Glucose (UA) NEGATIVE mg/dL (NEGATIVE) 02/07/17 17:15 Urine Ketones NEGATIVE mg/dL (NEGATIVE) 02/07/17 17:15 Urine Blood NEGATIVE (NEGATIVE) 02/07/17 17:15 Urine Nitrate NEGATIVE (NEGATIVE) 02/07/17 17:15 Urine Bilirubin NEGATIVE (NEGATIVE) 02/07/17 17:15 Urine Urobilinogen 1.0 E.U./dL (0.2 - 1.0) 02/07/17 17:15 Ur Leukocyte Esterase TRACE (NEGATIVE) H 02/07/17 17:15 Urine RBC NONE SEEN /hpf (0-5) 02/07/17 17:15 Urine WBC 2-5 /hpf (0-5) H 02/07/17 17:15 Ur Epithelial Cells NONE SEEN /lpf (FEW) 02/07/17 17:15 Urine Bacteria NONE SEEN /hpf (NONE SEEN) 02/07/17 17:15 Urine Opiates Screen NEGATIVE (NEGATIVE) 02/07/17 17:15 Urine Methadone Screen NEGATIVE (NEGATIVE) 02/07/17 17:15 Ur Barbiturates Screen NEGATIVE (NEGATIVE) 02/07/17 17:15 Valproic Acid 25.8 ug/mL (50.0-100.0) L 02/07/17 16:45 Ur Tricyclics Screen NEGATIVE (NEGATIVE) 02/07/17 17:15 Ur Phencyclidine Scrn NEGATIVE (NEGATIVE) 02/07/17 17:15 Amphetamines Screen NEGATIVE (NEGATIVE) 02/07/17 17:15 U Methamphetamines Scrn NEGATIVE (NEGATIVE) 02/07/17 17:15 U Benzodiazepines Scrn POSITIVE (NEGATIVE) H 02/07/17 17:15 U Cocaine Metab Screen NEGATIVE (NEGATIVE) 02/07/17 17:15 U Cannabinoids Screen NEGATIVE (NEGATIVE) 02/07/17 17:15 Ethyl Alcohol < 10 mg/dL (0-10) 02/07/17 16:45 - Physical Exam Vitals and I&O: Vital Signs Temp 98.2 F 02/14/17 15:50 Pulse 89 02/14/17 15:50 Resp 19 02/14/17 15:50 BP 124/61 02/14/17 15:50 Pulse Ox 99 02/14/17 15:50 Intake & Output 02/13/17 02/14/17 02/14/17 18:59 06:59 18:59 Intake Total 2589 242 4869 Balance 2364 517 6426 Weight (lbs) 77.7 kg Intake: Oral 6084 841 6234 Other: # Voids 5 1 4 # Bowel Movements 1 1 1 Active Medications: Current Medications Al Hydrox/Mg Hydrox/Simethicone (Maalox) 30 ml PO Q4HR PRN PRN Reason: GI DISTRESS Stop: 04/08/17 20:08 Aspirin (Aspirin Chewable) 81 mg PO DAILY [facility] Stop: 04/09/17 08:59 Last Admin: 02/14/17 09:31 Dose: Not Given Divalproex Sodium (Depakote Sprinkle) 500 mg PO HS FEI PRN Reason: Protocol Stop: 04/09/17 20:59 Last Admin: 02/13/17 20:22 Dose: 500 mg Donepezil HCl (Aricept) 10 mg PO HS FEI Stop: 04/11/17 12:05 Last Admin: 02/13/17 20:22 Dose: 10 mg Escitalopram Oxalate (Lexapro) 10 mg PO DAILY FEI PRN Reason: Protocol Stop: 04/09/17 08:59 Last Admin: 02/14/17 09:23 Dose: 10 mg Insulin Aspart (Novolog Insulin Sliding Scale) 0 units SUBQ ACHS FEI PRN Reason: Protocol Stop: 04/08/17 20:59 Last Admin: 02/14/17 16:54 Dose: Not Given Insulin Detemir (Levemir Insulin) 10 units SUBQ HS FEI PRN Reason: Protocol Stop: 04/08/17 20:59 Last Admin: 02/13/17 20:26 Dose: 10 units Lorazepam (Ativan) 0.5 mg PO Q4HR PRN; Protocol PRN Reason: Anxiety Stop: 03/09/17 20:08 Last Admin: 02/14/17 14:31 Dose: 0.5 mg Magnesium Hydroxide (Milk Of Magnesia) 30 ml PO DAILY PRN PRN Reason: Constipation Stop: 04/12/17 17:12 Memantine (Namenda) 5 mg PO DAILY [facility] Stop: 04/13/17 08:59 Last Admin: 02/14/17 09:23 Dose: 5 mg Metformin HCl (Glucophage) 500 mg PO BIDWM FEI Stop: 04/09/17 07:59 Last Admin: 02/14/17 09:00 Dose: 500 mg Multivitamins/Vitamin C (Theragran) 1 tab PO DAILY [facility]I Stop: 04/09/17 08:59 Last Admin: 02/14/17 09:31 Dose: Not Given Pantoprazole Sodium (Protonix) 40 mg PO DAILY [facility] Stop: 04/09/17 08:59 Last Admin: 02/14/17 09:31 Dose: Not Given Zolpidem Tartrate (Ambien) 5 mg PO HS PRN PRN Reason: Insomnia Stop: 04/08/17 20:08 Last Admin: 02/07/17 21:57 Dose: 5 mg General: Alert, No acute distress HEENT: Atraumatic, PERRLA Neck: Supple Cardiovascular: Regular rate, Normal S1, Normal S2 Lungs: Clear to auscultation Abdomen: Bowel sounds, Soft Extremities: Other (no edema,no cyanosis.) Neurological: Other (marked dementia.) - Procedures Procedures: Procedures Procedure Code Date ECG MONIT/REPRT UP TO 48 HRS 88462 09/05/95 ELECTROCARDIOGRAPH MONIT 89.54 09/05/95 Assessment/Plan - Problem List Patient Problems: All Active Problems AGITATION AND STRIKING OUT BEHAVIOR (Acute) - Assessment Assessment: DIABETES HTN BPH CAD DJD DEMENTIA PSYCH DISORDER FALL RISK DEBILITY - Plan Plan: MONITOR GLUCOSE AND VITALS FALL PRECAUTIONS GENERAL NURSING CARE PSYCH MEDS PSYCH FOLLOW UP INSULIN THERAPY MEDICAL MANAGEMENT SYMPTOMS CONTROL CONTINUE CURRENT CARE DISCUSSE WITH STAFF. Nutritional Asmnt/Malnutr-PDOC - Dietary Evaluation Malnutrition Findings (Please click <Entered> for more info): Nutritional Asmnt/Malnutrition Start: 02/13/17 11: 06 Text: Status: Complete Freq: Document 02/13/17 11:06 GSUN (Rec: 02/13/17 11:23 [email or web address] [id number]) Nutritional Asmnt/Malnutrition Patient General Information Nutritional Screening Diagnosis Diagnosis Acute exacerbation of psychotic disorder Pertinent Medical Hx/Surgical Hx Advanced Alzheimer's dementia, DM, HTN, BPH, CAD, DJD, dysphagia Subjective Information 76 year old male from SNF. Pt was asleep during visit, unable to be woken up. Per nursing staff, pt with advanced dementia, speech is nonsensical. Spoke to Dr. Ho regarding CCHO diet, obtained order. No significant fat/muscle wasting noted. Avg PO intake 79% of meals, meeting nutritional needs. Current Diet Order/ Nutrition Support Pureed Pertinent Medications Maalox, Novolog, Levemir, MOM, Glucophage, Theragran, Protonix Pertinent Labs POC glucose 93-228 past 3 days Nutritional Hx/Data Height 1.68 m Height (Calculated Centimeters) 167.6 Current Weight (lbs) 77.7 kg Weight (Calculated Kilograms) 77.7 Weight (Calculated Grams) 67163.4 [place] Body Weight 142 Weight Status Overweight GI Symptoms Skin Integrity/Comment: Chris 18. Skin intact. Current %PO Good (75-100%) Estimated Nutritional Goals Calories/Kcals/Kg IBW 142lb/64.5kg Kcals Calculated 1613-1935kcal (25-30kcal/kg) Protein g/kg: IBW Protein Calculated 65g (1g/kg) Fluid: ml 1613-1935ml (1ml/kcal) Nutritional Problem 1. Problem Problem Altered nutrition related laboratory values related to Etiology DM aeb Signs/Symptoms: H&P, elevated POC glucose, on DM medications Intervention/Recommendation Comments 1. Recommend [id number] pureed. DM noted in H&P with elevated POC glucose highest at 278 since adm. Discussed with Avg PO intake is adequate. Expected Outcomes/Goals Expected Outcomes/Goals 1. PO intake continue to meet at least 75% of estimated nutritional needs.
[2017-02-14] MEDS: Insulin Detemir 100 units/mL 10mL Vial SUBQ SCH (20:28)
--- NOTE | 2017-02-15 05:50 | Progress Notes ---
DATE: 02/14/2017 Case was discussed with staff of the patient, reviewed records. The patient continues to be confused, continues to be unable to participate in a meaningful conversation or make safe plan for self-care, but continues to have poor insight, needing redirection, unable to recognize his family members and needing redirection. He is sleeping well, eating well. He is compliant with the medications with no side effects, no sedation, no nausea. His current medication, Namenda that was started 2 days ago and ____ to be ____; so far, no side effects with the medication, no sedation, no nausea and no extrapyramidal symptoms. We will continue to work with the patient in group therapy, milieu therapy, adjust medication as needed. JOB# [id number]
[2017-02-15] MEDS: INSULIN ASPART SLIDING SCALE 100 UNITS/ML UNIT SUBQ SCH ×4 (06:53→20:28)
--- NOTE | 2017-02-15 07:48 | Progress Notes ---
DATE: 02/15/2017 SUBJECTIVE: Chart reviewed and the patient interviewed. Also discussed the patient's condition with the staff and reviewed records and labs. The patient is still anxious and he is still confused. The patient also is still easily agitated and easily irritable. The patient also is forgetful and he is unable to carry on coherent conversation. Also, still has periods of agitation and gets aggressive when staff tries to help him with his ADLs. During interview, the patient is disheveled and he is rambling and mumbling with words that are difficult to understand and he is unable to carry any coherent conversation. The patient also gets agitated easily with trying to ask him questions and seems to be more confused at times. ASSESSMENT: The patient is still psychotic and agitated. TREATMENT PLAN: We will continue monitoring his behavior and his condition closely. Also, we will increase Namenda to 10 mg at bedtime. Also, we will continue to work on his irritability and we will continue to follow his mood and follow up closely. [facility]# [id number]
[2017-02-15] MEDS: Multivitamin Tab PO SCH (13:06)
[2017-02-15] MEDS: Pantoprazole 40 mg EC Tab PO SCH (13:06)
[2017-02-15] MEDS: Aspirin 81mg Chewable Tab PO SCH (13:07)
[2017-02-15] MEDS: Insulin Detemir 100 units/mL 10mL Vial SUBQ SCH (20:32)
[2017-02-16] MEDS: INSULIN ASPART SLIDING SCALE 100 UNITS/ML UNIT SUBQ SCH ×4 (06:37→21:47)
[2017-02-16] MEDS: Multivitamin Tab PO SCH (09:49)
[2017-02-16] MEDS: Pantoprazole 40 mg EC Tab PO SCH (09:49)
[2017-02-16] MEDS: Aspirin 81mg Chewable Tab PO SCH (09:50)
--- NOTE | 2017-02-16 13:41 | General Progress Note ---
Subjective - Review of Systems Subjective: PATIENT IS SEEN AND EXAMINED. NON VERBAL. NO NEW EVENTS. AVAILABLE CHART REVIEWED. Objective - Results Result Diagrams: 02/07/17 16:45 02/07/17 16:45 Recent Labs: Laboratory Last Values WBC 6.2 Th/cmm (4.8-10.8) 02/07/17 16:45 RBC 4.61 Mil/cmm (3.80-5.80) 02/07/17 16:45 Hgb 13.2 gm/dL (12.6-17.4) 02/07/17 16:45 Hct 40.7 % (39.0-49.0) 02/07/17 16:45 MCV 88.2 fl (80-99) 02/07/17 16:45 MCH 28.7 pg (27.0-31.0) 02/07/17 16:45 MCHC Differential 32.5 pg (28.0-36.0) 02/07/17 16:45 RDW 14.1 % (11.5-20.0) 02/07/17 16:45 Plt Count 329 Th/cmm (150-400) 02/07/17 16:45 MPV 7.9 fl 02/07/17 16:45 Neutrophils % 36.7 % (40.0-80.0) L 02/07/17 16:45 Lymphocytes % 51.0 % (20.0-50.0) H 02/07/17 16:45 Monocytes % 6.1 % (2.0-10.0) 02/07/17 16:45 Eosinophils % 5.6 % (0.0-5.0) H 02/07/17 16:45 Basophils % 0.6 % (0.0-2.0) 02/07/17 16:45 Sodium 140 mEq/L (136-145) 02/07/17 16:45 Potassium 4.0 mEq/L (3.5-5.1) 02/07/17 16:45 Chloride 103 mEq/L (98-107) 02/07/17 16:45 Carbon Dioxide 31.0 mEq/L (21.0-31.0) 02/07/17 16:45 Anion Gap 10.0 (7.0-16.0) 02/07/17 16:45 BUN 10 mg/dL (7-25) 02/07/17 16:45 Creatinine 0.9 mg/dL (0.7-1.3) 02/07/17 16:45 Est GFR ( Amer) TNP 02/07/17 16:45 Est GFR (Non-Af Amer) TNP 02/07/17 16:45 BUN/Creatinine Ratio 11.1 02/07/17 16:45 Glucose 75 mg/dL (70-105) 02/07/17 16:45 POC Glucose 157 MG/DL (70 - 105) H 02/16/17 12:02 Calcium 9.8 mg/dL (8.6-10.3) 02/07/17 16:45 Urine Source CLEAN C 02/07/17 17:15 Urine Color YELLOW 02/07/17 17:15 Urine Clarity CLEAR (CLEAR) 02/07/17 17:15 Urine pH 6.0 02/07/17 17:15 Ur Specific [place] 1.015 (1.005-1.030) 02/07/17 17:15 Urine Protein NEGATIVE mg/dL (NEGATIVE) 02/07/17 17:15 Urine Glucose (UA) NEGATIVE mg/dL (NEGATIVE) 02/07/17 17:15 Urine Ketones NEGATIVE mg/dL (NEGATIVE) 02/07/17 17:15 Urine Blood NEGATIVE (NEGATIVE) 02/07/17 17:15 Urine Nitrate NEGATIVE (NEGATIVE) 02/07/17 17:15 Urine Bilirubin NEGATIVE (NEGATIVE) 02/07/17 17:15 Urine Urobilinogen 1.0 E.U./dL (0.2 - 1.0) 02/07/17 17:15 Ur Leukocyte Esterase TRACE (NEGATIVE) H 02/07/17 17:15 Urine RBC NONE SEEN /hpf (0-5) 02/07/17 17:15 Urine WBC 2-5 /hpf (0-5) H 02/07/17 17:15 Ur Epithelial Cells NONE SEEN /lpf (FEW) 02/07/17 17:15 Urine Bacteria NONE SEEN /hpf (NONE SEEN) 02/07/17 17:15 Urine Opiates Screen NEGATIVE (NEGATIVE) 02/07/17 17:15 Urine Methadone Screen NEGATIVE (NEGATIVE) 02/07/17 17:15 Ur Barbiturates Screen NEGATIVE (NEGATIVE) 02/07/17 17:15 Valproic Acid 39.1 ug/mL (50.0-100.0) L 02/16/17 06:05 Ur Tricyclics Screen NEGATIVE (NEGATIVE) 02/07/17 17:15 Ur Phencyclidine Scrn NEGATIVE (NEGATIVE) 02/07/17 17:15 Amphetamines Screen NEGATIVE (NEGATIVE) 02/07/17 17:15 U Methamphetamines Scrn NEGATIVE (NEGATIVE) 02/07/17 17:15 U Benzodiazepines Scrn POSITIVE (NEGATIVE) H 02/07/17 17:15 U Cocaine Metab Screen NEGATIVE (NEGATIVE) 02/07/17 17:15 U Cannabinoids Screen NEGATIVE (NEGATIVE) 02/07/17 17:15 Ethyl Alcohol < 10 mg/dL (0-10) 02/07/17 16:45 - Physical Exam Vitals and I&O: Vital Signs Temp 97.6 F 02/15/17 15:23 Pulse 70 02/15/17 15:23 Resp 18 02/15/17 15:23 BP 110/63 02/15/17 15:23 Pulse Ox 96 02/15/17 15:23 Intake & Output 02/15/17 02/16/17 02/16/17 18:59 06:59 18:59 Intake Total 1700 Balance 1700 Intake: Oral 1700 Other: # Voids 6 # Bowel Movements 1 Active Medications: Current Medications Al Hydrox/Mg Hydrox/Simethicone (Maalox) 30 ml PO Q4HR PRN PRN Reason: GI DISTRESS Stop: 04/08/17 20:08 Aspirin (Aspirin Chewable) 81 mg PO DAILY [facility] Stop: 04/09/17 08:59 Last Admin: 02/16/17 09:50 Dose: 81 mg Divalproex Sodium (Depakote Sprinkle) 500 mg PO HS FEI PRN Reason: Protocol Stop: 04/09/17 20:59 Last Admin: 02/15/17 20:22 Dose: 500 mg Donepezil HCl (Aricept) 10 mg PO HS FEI Stop: 04/11/17 12:05 Last Admin: 02/15/17 20:23 Dose: 10 mg Escitalopram Oxalate (Lexapro) 10 mg PO DAILY FEI PRN Reason: Protocol Stop: 04/09/17 08:59 Last Admin: 02/16/17 09:49 Dose: 10 mg Insulin Aspart (Novolog Insulin Sliding Scale) 0 units SUBQ ACHS FEI PRN Reason: Protocol Stop: 04/08/17 20:59 Last Admin: 02/16/17 12:18 Dose: Not Given Insulin Detemir (Levemir Insulin) 10 units SUBQ HS FEI PRN Reason: Protocol Stop: 04/08/17 20:59 Last Admin: 02/15/17 20:32 Dose: 10 units Lorazepam (Ativan) 1 mg PO Q4HR PRN; Protocol PRN Reason: Anxiety Stop: 03/09/17 20:08 Last Admin: 02/16/17 09:50 Dose: 1 mg Magnesium Hydroxide (Milk Of Magnesia) 30 ml PO DAILY PRN PRN Reason: Constipation Stop: 04/12/17 17:12 Memantine (Namenda) 10 mg PO HS FEI Stop: 04/16/17 20:59 Last Admin: 02/15/17 20:23 Dose: 10 mg Metformin HCl (Glucophage) 500 mg PO BIDWM FEI Stop: 04/09/17 07:59 Last Admin: 02/16/17 09:49 Dose: 500 mg Multivitamins/Vitamin C (Theragran) 1 tab PO DAILY FEI Stop: 04/09/17 08:59 Last Admin: 02/16/17 09:49 Dose: 1 tab Pantoprazole Sodium (Protonix) 40 mg PO DAILY FEI Stop: 04/09/17 08:59 Last Admin: 02/16/17 09:49 Dose: 40 mg Zolpidem Tartrate (Ambien) 5 mg PO HS PRN PRN Reason: Insomnia Stop: 04/08/17 20:08 Last Admin: 02/07/17 21:57 Dose: 5 mg General: Alert, Cooperative, No acute distress HEENT: Atraumatic, PERRLA Neck: Supple, JVD Cardiovascular: Regular rate, Normal S1, Normal S2 Lungs: Clear to auscultation Abdomen: Bowel sounds Extremities: Other (diffuse DJD) - Procedures Procedures: Procedures Procedure Code Date ECG MONIT/REPRT UP TO 48 HRS 24677 09/05/95 ELECTROCARDIOGRAPH MONIT 89.54 09/05/95 Assessment/Plan - Problem List Patient Problems: All Active Problems AGITATION AND STRIKING OUT BEHAVIOR (Acute) - Assessment Assessment: DIABETES HTN BPH CAD DJD DEMENTIA PSYCH DISORDER FALL RISK DEBILITY - Plan Plan: MONITOR GLUCOSE AND VITALS FALL PRECAUTIONS GENERAL NURSING CARE PSYCH MEDS PSYCH FOLLOW UP INSULIN THERAPY MEDICAL MANAGEMENT SYMPTOMS CONTROL CONTINUE CURRENT CARE DISCUSSED WITH STAFF. Nutritional Asmnt/Malnutr-PDOC - Dietary Evaluation Malnutrition Findings (Please click <Entered> for more info): Nutritional Asmnt/Malnutrition Start: 02/13/17 11: 06 Text: Status: Complete Freq: Document 02/13/17 11:06 JANIAMANDA (Rec: 02/13/17 11:23 [email or web address]) Nutritional Asmnt/Malnutrition Patient General Information Nutritional Screening Diagnosis Diagnosis Acute exacerbation of psychotic disorder Pertinent Medical Hx/Surgical Hx Advanced Alzheimer's dementia, DM, HTN, BPH, CAD, DJD, dysphagia Subjective Information 76 year old male from SNF. Pt was asleep during visit, unable to be woken up. Per nursing staff, pt with advanced dementia, speech is nonsensical. Spoke to Dr. Ho regarding CCHO diet, obtained order. No significant fat/muscle wasting noted. Avg PO intake 79% of meals, meeting nutritional needs. Current Diet Order/ Nutrition Support Pureed Pertinent Medications Maalox, Novolog, Levemir, MOM, Glucophage, Theragran, Protonix Pertinent Labs POC glucose 93-228 past 3 days Nutritional Hx/Data Height 1.68 m Height (Calculated Centimeters) 167.6 Current Weight (lbs) 77.7 kg Weight (Calculated Kilograms) 77.7 Weight (Calculated Grams) 97930.4 [place] Body Weight 142 Weight Status Overweight GI Symptoms Skin Integrity/Comment: Chris 18. Skin intact. Current %PO Good (75-100%) Estimated Nutritional Goals Calories/Kcals/Kg IBW 142lb/64.5kg Kcals Calculated 1613-1935kcal (25-30kcal/kg) Protein g/kg: IBW Protein Calculated 65g (1g/kg) Fluid: ml 1613-1935ml (1ml/kcal) Nutritional Problem 1. Problem Problem Altered nutrition related laboratory values related to Etiology DM aeb Signs/Symptoms: H&P, elevated POC glucose, on DM medications Intervention/Recommendation Comments 1. Recommend [id number] pureed. DM noted in H&P with elevated POC glucose highest at 278 since adm. Discussed with MD. Avg PO intake is adequate. Expected Outcomes/Goals Expected Outcomes/Goals 1. PO intake continue to meet at least 75% of estimated nutritional needs.
[2017-02-16] MEDS: Insulin Detemir 100 units/mL 10mL Vial SUBQ SCH (21:17)
--- NOTE | 2017-02-17 04:05 | Progress Notes ---
DATE: 02/16/2017 SUBJECTIVE: Chart reviewed and the patient interviewed. Also, discussed the patient's condition with the staff and reviewed records and labs. The patient continues to be confused and he is still rambling and he has still have disorganized thoughts. The patient also is easily agitated and is still resisting care, especially when staff tries to redirect him or help him with his ADLs. The patient also is still unable to provide any safe plan for self-care and personal hygiene is still poor. He also have difficulty sleeping all night. Otherwise, the patient is compliant with taking his medications with no side effects of medications. ASSESSMENT: The patient is still psychotic and agitated. TREATMENT PLAN: We will continue monitoring his behavior and his condition closely. Also, continue adjusting psychotropic medications and continue to follow up closely. JOB# [id number]
[2017-02-17] MEDS: INSULIN ASPART SLIDING SCALE 100 UNITS/ML UNIT SUBQ SCH ×4 (06:36→20:51)
[2017-02-17] MEDS: Multivitamin Tab PO SCH (09:22)
[2017-02-17] MEDS: Aspirin 81mg Chewable Tab PO SCH (09:22)
[2017-02-17] MEDS: Pantoprazole 40 mg EC Tab PO SCH (09:23)
[2017-02-17] MEDS: Insulin Detemir 100 units/mL 10mL Vial SUBQ SCH (20:58)
--- NOTE | 2017-02-18 01:16 | Progress Notes ---
DATE: 02/17/2017 SUBJECTIVE: Chart reviewed and the patient interviewed. Also discussed the patient's condition with staff and reviewed records and labs. The patient is still extremely agitated and he is still in irritable and angry mood. The patient also is still having severe mood swings and he is still unable to follow directions. The patient also was taking off his clothes during my trial to talk to him and he was not able to answer any of the questions. He also is still agitated and he is still disheveled. On the other hand, the patient is compliant with taking his medications with no side effects of medications. ASSESSMENT: The patient is still psychotic and is still agitated and can be dangerous to others. TREATMENT PLAN: We will continue to monitor his behavior and his condition closely. Also, will decrease Lexapro to 5 mg everyday and will add Seroquel in a dose of 12.5 mg twice a day. Also, continue to monitor his behavior closely because of his agitation and irritability. [facility]# [id number]
[2017-02-18] MEDS: INSULIN ASPART SLIDING SCALE 100 UNITS/ML UNIT SUBQ SCH ×4 (06:38→21:10)
[2017-02-18] MEDS: Aspirin 81mg Chewable Tab PO SCH (08:49)
[2017-02-18] MEDS: Pantoprazole 40 mg EC Tab PO SCH (08:49)
[2017-02-18] MEDS: Multivitamin Tab PO SCH (08:49)
[2017-02-18] MEDS: Insulin Detemir 100 units/mL 10mL Vial SUBQ SCH (21:11)
--- NOTE | 2017-02-19 01:18 | Progress Notes ---
DATE: 02/18/2017 Case was discussed with staff of the patient, reviewed records. He is a well known case to me. Covering for Dr. Delaney. The patient continues to be confused, continues to be unable to participate in a meaningful conversation or make safe plan for self-care. He did not recognize his own family. He is sleeping well, fed by the staff, has to be prompted to eat. He is on Depakote 500 mg at bedtime, Aricept 10 mg at bedtime, Lexapro 5 mg in the morning that was initiated yesterday by Dr. Delaney. He is on Namenda 10 mg at bedtime and Seroquel that was also initiated by Dr. Delaney yesterday at 12.5 mg twice a day and no side effects, no sedation, no nausea, and no extrapyramidal symptoms. I will continue to work with the patient in group therapy, milieu therapy, and adjust medications as needed. JOB# [id number]
[2017-02-19] MEDS: INSULIN ASPART SLIDING SCALE 100 UNITS/ML UNIT SUBQ SCH ×4 (06:36→21:14)
[2017-02-19] MEDS: Multivitamin Tab PO SCH (08:57)
[2017-02-19] MEDS: Pantoprazole 40 mg EC Tab PO SCH (08:57)
[2017-02-19] MEDS: Aspirin 81mg Chewable Tab PO SCH (08:58)
[2017-02-19] MEDS: Insulin Detemir 100 units/mL 10mL Vial SUBQ SCH (21:08)
--- NOTE | 2017-02-20 05:33 | Progress Notes ---
DATE: 02/19/[address] Delaney. Case was discussed with staff of the patient, reviewed records. The patient continues to be unpredictable, impulsive, continues to be demented, confused, have no memory about the reason why he is here, cannot even recognize his family. He is sleeping well, eating well. He needs to be prompted by staff. No side effects from the medication, no sedation, no nausea. We will continue to work with the patient in group therapy, milieu therapy, and adjust the medication as needed. JOB# [id number]
[2017-02-20] MEDS: INSULIN ASPART SLIDING SCALE 100 UNITS/ML UNIT SUBQ SCH ×4 (06:42→20:58)
[2017-02-20] MEDS: Multivitamin Tab PO SCH (09:00)
[2017-02-20] MEDS: Pantoprazole 40 mg EC Tab PO SCH (09:00)
[2017-02-20] MEDS: Aspirin 81mg Chewable Tab PO SCH (09:00)
[2017-02-20] MEDS: Insulin Detemir 100 units/mL 10mL Vial SUBQ SCH (20:59)
--- NOTE | 2017-02-21 03:42 | Progress Notes ---
DATE: 02/20/2017 Case was discussed with staff of the patient, reviewed records. The patient's reports the patient has been too sedated and I reviewed his medication. He is on Seroquel 12.5 mg ____, which is very small dose so I will be going down to 12.5 mg at bedtime. The patient continues to be demented, confused, isolating himself, needing prompting, needing redirection. We will be decreasing Seroquel dose. He is on Depakote 500 mg a day with a level of 39.1, which is not really that high; however, is not given for seizures, basically is being given for his behavior problem. We will continue to work with the patient in group therapy, milieu therapy, adjust medication as needed. JOB# [id number]
[2017-02-21] MEDS: INSULIN ASPART SLIDING SCALE 100 UNITS/ML UNIT SUBQ SCH ×4 (06:37→20:49)
[2017-02-21] MEDS: Pantoprazole 40 mg EC Tab PO SCH (09:26)
[2017-02-21] MEDS: Aspirin 81mg Chewable Tab PO SCH (09:27)
[2017-02-21] MEDS: Multivitamin Tab PO SCH (09:27)
--- NOTE | 2017-02-21 14:43 | Internal Medicine Prog Note ---
Internal Medicine Subjective - Subjective Patient seen and examined:: with staff, chart reviewed Patient is:: awake, verbal, interactive Per staff patient is:: no adverse event, no episodes of fall Internal Medicine Objective - Results Result Diagrams: 02/07/17 16:45 02/07/17 16:45 Recent Labs: Laboratory Last Values WBC 6.2 Th/cmm (4.8-10.8) 02/07/17 16:45 RBC 4.61 Mil/cmm (3.80-5.80) 02/07/17 16:45 Hgb 13.2 gm/dL (12.6-17.4) 02/07/17 16:45 Hct 40.7 % (39.0-49.0) 02/07/17 16:45 MCV 88.2 fl (80-99) 02/07/17 16:45 MCH 28.7 pg (27.0-31.0) 02/07/17 16:45 MCHC Differential 32.5 pg (28.0-36.0) 02/07/17 16:45 RDW 14.1 % (11.5-20.0) 02/07/17 16:45 Plt Count 329 Th/cmm (150-400) 02/07/17 16:45 MPV 7.9 fl 02/07/17 16:45 Neutrophils % 36.7 % (40.0-80.0) L 02/07/17 16:45 Lymphocytes % 51.0 % (20.0-50.0) H 02/07/17 16:45 Monocytes % 6.1 % (2.0-10.0) 02/07/17 16:45 Eosinophils % 5.6 % (0.0-5.0) H 02/07/17 16:45 Basophils % 0.6 % (0.0-2.0) 02/07/17 16:45 Sodium 140 mEq/L (136-145) 02/07/17 16:45 Potassium 4.0 mEq/L (3.5-5.1) 02/07/17 16:45 Chloride 103 mEq/L (98-107) 02/07/17 16:45 Carbon Dioxide 31.0 mEq/L (21.0-31.0) 02/07/17 16:45 Anion Gap 10.0 (7.0-16.0) 02/07/17 16:45 BUN 10 mg/dL (7-25) 02/07/17 16:45 Creatinine 0.9 mg/dL (0.7-1.3) 02/07/17 16:45 Est GFR ( Amer) TNP 02/07/17 16:45 Est GFR (Non-Af Amer) TNP 02/07/17 16:45 BUN/Creatinine Ratio 11.1 02/07/17 16:45 Glucose 75 mg/dL (70-105) 02/07/17 16:45 POC Glucose 103 MG/DL (70 - 105) 02/21/17 11:18 Calcium 9.8 mg/dL (8.6-10.3) 02/07/17 16:45 Urine Source CLEAN C 02/07/17 17:15 Urine Color YELLOW 02/07/17 17:15 Urine Clarity CLEAR (CLEAR) 02/07/17 17:15 Urine pH 6.0 02/07/17 17:15 Ur Specific [place] 1.015 (1.005-1.030) 02/07/17 17:15 Urine Protein NEGATIVE mg/dL (NEGATIVE) 02/07/17 17:15 Urine Glucose (UA) NEGATIVE mg/dL (NEGATIVE) 02/07/17 17:15 Urine Ketones NEGATIVE mg/dL (NEGATIVE) 02/07/17 17:15 Urine Blood NEGATIVE (NEGATIVE) 02/07/17 17:15 Urine Nitrate NEGATIVE (NEGATIVE) 02/07/17 17:15 Urine Bilirubin NEGATIVE (NEGATIVE) 02/07/17 17:15 Urine Urobilinogen 1.0 E.U./dL (0.2 - 1.0) 02/07/17 17:15 Ur Leukocyte Esterase TRACE (NEGATIVE) H 02/07/17 17:15 Urine RBC NONE SEEN /hpf (0-5) 02/07/17 17:15 Urine WBC 2-5 /hpf (0-5) H 02/07/17 17:15 Ur Epithelial Cells NONE SEEN /lpf (FEW) 02/07/17 17:15 Urine Bacteria NONE SEEN /hpf (NONE SEEN) 02/07/17 17:15 Urine Opiates Screen NEGATIVE (NEGATIVE) 02/07/17 17:15 Urine Methadone Screen NEGATIVE (NEGATIVE) 02/07/17 17:15 Ur Barbiturates Screen NEGATIVE (NEGATIVE) 02/07/17 17:15 Valproic Acid 39.1 ug/mL (50.0-100.0) L 02/16/17 06:05 Ur Tricyclics Screen NEGATIVE (NEGATIVE) 02/07/17 17:15 Ur Phencyclidine Scrn NEGATIVE (NEGATIVE) 02/07/17 17:15 Amphetamines Screen NEGATIVE (NEGATIVE) 02/07/17 17:15 U Methamphetamines Scrn NEGATIVE (NEGATIVE) 02/07/17 17:15 U Benzodiazepines Scrn POSITIVE (NEGATIVE) H 02/07/17 17:15 U Cocaine Metab Screen NEGATIVE (NEGATIVE) 02/07/17 17:15 U Cannabinoids Screen NEGATIVE (NEGATIVE) 02/07/17 17:15 Ethyl Alcohol < 10 mg/dL (0-10) 02/07/17 16:45 - Physical Exam Vitals and I&O: Vital Signs Temp 98.0 F 02/21/17 06:36 Pulse 69 02/21/17 12:08 Resp 19 02/21/17 12:08 BP 117/49 02/21/17 06:36 Pulse Ox 92 02/21/17 06:36 Intake & Output 02/20/17 02/21/17 02/21/17 18:59 06:59 18:59 Intake Total 700 240 Balance 700 240 Intake: Oral 700 240 Other: # Voids 3 2 # Bowel Movements 0 0 Active Medications: Current Medications Al Hydrox/Mg Hydrox/Simethicone (Maalox) 30 ml PO Q4HR PRN PRN Reason: GI DISTRESS Stop: 04/08/17 20:08 Aspirin (Aspirin Chewable) 81 mg PO DAILY FEI Stop: 04/09/17 08:59 Last Admin: 02/21/17 09:27 Dose: 81 mg Divalproex Sodium (Depakote Sprinkle) 500 mg PO HS FEI PRN Reason: Protocol Stop: 04/09/17 20:59 Last Admin: 02/20/17 20:50 Dose: 500 mg Donepezil HCl (Aricept) 10 mg PO HS FEI Stop: 04/11/17 12:05 Last Admin: 02/20/17 20:51 Dose: 10 mg Escitalopram Oxalate (Lexapro) 5 mg PO DAILY FEI PRN Reason: Protocol Stop: 04/18/17 10:59 Last Admin: 02/21/17 09:26 Dose: 5 mg Insulin Aspart (Novolog Insulin Sliding Scale) 0 units SUBQ ACHS FEI PRN Reason: Protocol Stop: 04/08/17 20:59 Last Admin: 02/21/17 12:19 Dose: Not Given Insulin Detemir (Levemir Insulin) 10 units SUBQ HS FEI PRN Reason: Protocol Stop: 04/08/17 20:59 Last Admin: 02/20/17 20:59 Dose: 10 units Lorazepam (Ativan) 1 mg PO Q4HR PRN; Protocol PRN Reason: Anxiety Stop: 03/09/17 20:08 Last Admin: 02/19/17 13:47 Dose: 1 mg Magnesium Hydroxide (Milk Of Magnesia) 30 ml PO DAILY PRN PRN Reason: Constipation Stop: 04/12/17 17:12 Memantine (Namenda) 10 mg PO HS FEI Stop: 04/16/17 20:59 Last Admin: 02/20/17 20:51 Dose: 10 mg Metformin HCl (Glucophage) 500 mg PO BIDWM FEI Stop: 04/09/17 07:59 Last Admin: 02/21/17 09:28 Dose: Not Given Multivitamins/Vitamin C (Theragran) 1 tab PO DAILY FEI Stop: 04/09/17 08:59 Last Admin: 02/21/17 09:27 Dose: 1 tab Pantoprazole Sodium (Protonix) 40 mg PO DAILY FEI Stop: 04/09/17 08:59 Last Admin: 02/21/17 09:26 Dose: 40 mg Quetiapine Fumarate (Seroquel) 12.5 mg PO HS FEI PRN Reason: Protocol Stop: 04/21/17 20:59 Last Admin: 02/20/17 20:51 Dose: 12.5 mg Zolpidem Tartrate (Ambien) 5 mg PO HS PRN PRN Reason: Insomnia Stop: 04/08/17 20:08 Last Admin: 02/18/17 20:42 Dose: 5 mg General: demented HEENT: NC/AT, PERRLA Neck: Supple, No JVD Lungs: CTAB Cardiovascular: RRR, Normal S1, Normal S2 Abdomen: soft non-tender, globular Neurological: no change, unable to follow command - Procedures Procedures: Procedures Procedure Code Date ECG MONIT/REPRT UP TO 48 HRS 56544 09/05/95 ELECTROCARDIOGRAPH MONIT 89.54 09/05/95 Internal Medicine Assmt/Plan - Assessment Assessment: DIABETES HTN BPH CAD DJD DEMENTIA PSYCH DISORDER FALL RISK DEBILITY - Plan Plan: cont on ada iss cont on bp meds earline rn Nutritional Asmnt/Malnutr-PDOC - Dietary Evaluation Malnutrition Findings (Please click <Entered> for more info): Nutritional Asmnt/Malnutrition Start: 02/13/17 11: 06 Text: Status: Complete Freq: Document 02/13/17 11:06 GSUN (Rec: 02/13/17 11:23 GSUN [email or web address]) Nutritional Asmnt/Malnutrition Patient General Information Nutritional Screening Diagnosis Diagnosis Acute exacerbation of psychotic disorder Pertinent Medical Hx/Surgical Hx Advanced Alzheimer's dementia, DM, HTN, BPH, CAD, DJD, dysphagia Subjective Information 76 year old male from SNF. Pt was asleep during visit, unable to be woken up. Per nursing staff, pt with advanced dementia, speech is nonsensical. Spoke to Dr. Ho regarding CCHO diet, obtained order. No significant fat/muscle wasting noted. Avg PO intake 79% of meals, meeting nutritional needs. Current Diet Order/ Nutrition Support Pureed Pertinent Medications Maalox, Novolog, Levemir, MOM, Glucophage, Theragran, Protonix Pertinent Labs POC glucose 93-228 past 3 days Nutritional Hx/Data Height 1.68 m Height (Calculated Centimeters) 167.6 Current Weight (lbs) 77.7 kg Weight (Calculated Kilograms) 77.7 Weight (Calculated Grams) 70126.4 [place] Body Weight 142 Weight Status Overweight GI Symptoms Skin Integrity/Comment: Chris 18. Skin intact. Current %PO Good (75-100%) Estimated Nutritional Goals Calories/Kcals/Kg IBW 142lb/64.5kg Kcals Calculated 1613-1935kcal (25-30kcal/kg) Protein g/kg: IBW Protein Calculated 65g (1g/kg) Fluid: ml 1613-1935ml (1ml/kcal) Nutritional Problem 1. Problem Problem Altered nutrition related laboratory values related to Etiology DM aeb Signs/Symptoms: H&P, elevated POC glucose, on DM medications Intervention/Recommendation Comments 1. Recommend [id number] pureed. DM noted in H&P with elevated POC glucose highest at 278 since adm. Discussed with MD. Avg PO intake is adequate. Expected Outcomes/Goals Expected Outcomes/Goals 1. PO intake continue to meet at least 75% of estimated nutritional needs.
[2017-02-21] MEDS: Insulin Detemir 100 units/mL 10mL Vial SUBQ SCH (20:49)
--- NOTE | 2017-02-22 03:18 | Progress Notes ---
DATE: 02/21/2017 Case was discussed with staff of the patient, reviewed records. Covering for Dr. Delaney. The patient continues to be confused, unable to participate in meaningful conversation or make safe plan for self-care. Continues to be unpredictable, impulsive, needing redirection. He ____ his family ____ severely demented. I did decrease his Seroquel dose yesterday, so his complained that he is so sedated now and we will continue to work with the patient in group therapy, milieu therapy and adjust the medication as needed. JOB# [id number]
[2017-02-22] MEDS: INSULIN ASPART SLIDING SCALE 100 UNITS/ML UNIT SUBQ SCH ×4 (06:39→20:41)
[2017-02-22] MEDS: Multivitamin Tab PO SCH (09:11)
[2017-02-22] MEDS: Aspirin 81mg Chewable Tab PO SCH (09:11)
[2017-02-22] MEDS: Pantoprazole 40 mg EC Tab PO SCH (09:12)
--- NOTE | 2017-02-22 15:22 | Internal Medicine Prog Note ---
Internal Medicine Subjective - Subjective Patient seen and examined:: with staff, chart reviewed Patient is:: awake, verbal, interactive Per staff patient is:: no adverse event, noncompliant, confused Internal Medicine Objective - Results Result Diagrams: 02/07/17 16:45 02/07/17 16:45 Recent Labs: Laboratory Last Values WBC 6.2 Th/cmm (4.8-10.8) 02/07/17 16:45 RBC 4.61 Mil/cmm (3.80-5.80) 02/07/17 16:45 Hgb 13.2 gm/dL (12.6-17.4) 02/07/17 16:45 Hct 40.7 % (39.0-49.0) 02/07/17 16:45 MCV 88.2 fl (80-99) 02/07/17 16:45 MCH 28.7 pg (27.0-31.0) 02/07/17 16:45 MCHC Differential 32.5 pg (28.0-36.0) 02/07/17 16:45 RDW 14.1 % (11.5-20.0) 02/07/17 16:45 Plt Count 329 Th/cmm (150-400) 02/07/17 16:45 MPV 7.9 fl 02/07/17 16:45 Neutrophils % 36.7 % (40.0-80.0) L 02/07/17 16:45 Lymphocytes % 51.0 % (20.0-50.0) H 02/07/17 16:45 Monocytes % 6.1 % (2.0-10.0) 02/07/17 16:45 Eosinophils % 5.6 % (0.0-5.0) H 02/07/17 16:45 Basophils % 0.6 % (0.0-2.0) 02/07/17 16:45 Sodium 140 mEq/L (136-145) 02/07/17 16:45 Potassium 4.0 mEq/L (3.5-5.1) 02/07/17 16:45 Chloride 103 mEq/L (98-107) 02/07/17 16:45 Carbon Dioxide 31.0 mEq/L (21.0-31.0) 02/07/17 16:45 Anion Gap 10.0 (7.0-16.0) 02/07/17 16:45 BUN 10 mg/dL (7-25) 02/07/17 16:45 Creatinine 0.9 mg/dL (0.7-1.3) 02/07/17 16:45 Est GFR ( Amer) TNP 02/07/17 16:45 Est GFR (Non-Af Amer) TNP 02/07/17 16:45 BUN/Creatinine Ratio 11.1 02/07/17 16:45 Glucose 75 mg/dL (70-105) 02/07/17 16:45 POC Glucose 94 MG/DL (70 - 105) 02/22/17 11:49 Calcium 9.8 mg/dL (8.6-10.3) 02/07/17 16:45 Urine Source CLEAN C 02/07/17 17:15 Urine Color YELLOW 02/07/17 17:15 Urine Clarity CLEAR (CLEAR) 02/07/17 17:15 Urine pH 6.0 02/07/17 17:15 Ur Specific [place] 1.015 (1.005-1.030) 02/07/17 17:15 Urine Protein NEGATIVE mg/dL (NEGATIVE) 02/07/17 17:15 Urine Glucose (UA) NEGATIVE mg/dL (NEGATIVE) 02/07/17 17:15 Urine Ketones NEGATIVE mg/dL (NEGATIVE) 02/07/17 17:15 Urine Blood NEGATIVE (NEGATIVE) 02/07/17 17:15 Urine Nitrate NEGATIVE (NEGATIVE) 02/07/17 17:15 Urine Bilirubin NEGATIVE (NEGATIVE) 02/07/17 17:15 Urine Urobilinogen 1.0 E.U./dL (0.2 - 1.0) 02/07/17 17:15 Ur Leukocyte Esterase TRACE (NEGATIVE) H 02/07/17 17:15 Urine RBC NONE SEEN /hpf (0-5) 02/07/17 17:15 Urine WBC 2-5 /hpf (0-5) H 02/07/17 17:15 Ur Epithelial Cells NONE SEEN /lpf (FEW) 02/07/17 17:15 Urine Bacteria NONE SEEN /hpf (NONE SEEN) 02/07/17 17:15 Urine Opiates Screen NEGATIVE (NEGATIVE) 02/07/17 17:15 Urine Methadone Screen NEGATIVE (NEGATIVE) 02/07/17 17:15 Ur Barbiturates Screen NEGATIVE (NEGATIVE) 02/07/17 17:15 Valproic Acid 39.1 ug/mL (50.0-100.0) L 02/16/17 06:05 Ur Tricyclics Screen NEGATIVE (NEGATIVE) 02/07/17 17:15 Ur Phencyclidine Scrn NEGATIVE (NEGATIVE) 02/07/17 17:15 Amphetamines Screen NEGATIVE (NEGATIVE) 02/07/17 17:15 U Methamphetamines Scrn NEGATIVE (NEGATIVE) 02/07/17 17:15 U Benzodiazepines Scrn POSITIVE (NEGATIVE) H 02/07/17 17:15 U Cocaine Metab Screen NEGATIVE (NEGATIVE) 02/07/17 17:15 U Cannabinoids Screen NEGATIVE (NEGATIVE) 02/07/17 17:15 Ethyl Alcohol < 10 mg/dL (0-10) 02/07/17 16:45 - Physical Exam Vitals and I&O: Vital Signs Temp 97.1 F 02/22/17 06:40 Pulse 71 02/22/17 06:40 Resp 19 02/22/17 06:40 BP 125/72 02/22/17 06:40 Pulse Ox 94 02/22/17 06:40 Intake & Output 02/21/17 02/22/17 02/22/17 18:59 06:59 18:59 Intake Total 1800 240 Balance 1800 240 Intake: Oral 1800 240 Other: # Voids 4 3 # Bowel Movements 1 0 Active Medications: Current Medications Al Hydrox/Mg Hydrox/Simethicone (Maalox) 30 ml PO Q4HR PRN PRN Reason: GI DISTRESS Stop: 04/08/17 20:08 Aspirin (Aspirin Chewable) 81 mg PO DAILY FIE Stop: 04/09/17 08:59 Last Admin: 02/22/17 09:11 Dose: Not Given Divalproex Sodium (Depakote Sprinkle) 500 mg PO HS FEI PRN Reason: Protocol Stop: 04/09/17 20:59 Last Admin: 02/21/17 20:48 Dose: 500 mg Donepezil HCl (Aricept) 10 mg PO HS FEI Stop: 04/11/17 12:05 Last Admin: 02/21/17 20:48 Dose: 10 mg Escitalopram Oxalate (Lexapro) 5 mg PO DAILY FEI PRN Reason: Protocol Stop: 04/18/17 10:59 Last Admin: 02/22/17 09:11 Dose: Not Given Insulin Aspart (Novolog Insulin Sliding Scale) 0 units SUBQ ACHS FEI PRN Reason: Protocol Stop: 04/08/17 20:59 Last Admin: 02/22/17 12:08 Dose: Not Given Insulin Detemir (Levemir Insulin) 10 units SUBQ HS FEI PRN Reason: Protocol Stop: 04/08/17 20:59 Last Admin: 02/21/17 20:49 Dose: 10 units Lorazepam (Ativan) 1 mg PO Q4HR PRN; Protocol PRN Reason: Anxiety Stop: 03/09/17 20:08 Last Admin: 02/21/17 20:59 Dose: 1 mg Magnesium Hydroxide (Milk Of Magnesia) 30 ml PO DAILY PRN PRN Reason: Constipation Stop: 04/12/17 17:12 Memantine (Namenda) 10 mg PO HS FEI Stop: 04/16/17 20:59 Last Admin: 02/21/17 20:48 Dose: 10 mg Metformin HCl (Glucophage) 500 mg PO BIDWM FEI Stop: 04/09/17 07:59 Last Admin: 02/22/17 09:11 Dose: Not Given Multivitamins/Vitamin C (Theragran) 1 tab PO DAILY FEI Stop: 04/09/17 08:59 Last Admin: 02/22/17 09:11 Dose: Not Given Pantoprazole Sodium (Protonix) 40 mg PO DAILY FEI Stop: 04/09/17 08:59 Last Admin: 02/22/17 09:12 Dose: Not Given Quetiapine Fumarate (Seroquel) 12.5 mg PO BID FEI PRN Reason: Protocol Stop: 04/23/17 16:59 Zolpidem Tartrate (Ambien) 5 mg PO HS PRN PRN Reason: Insomnia Stop: 04/08/17 20:08 Last Admin: 02/18/17 20:42 Dose: 5 mg General: demented HEENT: NC/AT, PERRLA Neck: Supple, No JVD Lungs: CTAB Cardiovascular: RRR, Normal S1, Normal S2 Abdomen: soft non-tender, globular, positive bowel sound Extremities: excoriation, contracture Neurological: no change - Procedures Procedures: Procedures Procedure Code Date ECG MONIT/REPRT UP TO 48 HRS 29972 09/05/95 ELECTROCARDIOGRAPH MONIT 89.54 09/05/95 Internal Medicine Assmt/Plan - Assessment Assessment: DIABETES HTN BPH CAD DJD DEMENTIA PSYCH DISORDER FALL RISK DEBILITY - Plan Plan: cont on ada iss cont on bp meds earline rn Nutritional Asmnt/Malnutr-PDOC - Dietary Evaluation Malnutrition Findings (Please click <Entered> for more info): Nutritional Asmnt/Malnutrition Start: 02/13/17 11: 06 Text: Status: Complete Freq: Document 02/13/17 11:06 GSUN (Rec: 02/13/17 11:23 GSUN [id number]) Nutritional Asmnt/Malnutrition Patient General Information Nutritional Screening Diagnosis Diagnosis Acute exacerbation of psychotic disorder Pertinent Medical Hx/Surgical Hx Advanced Alzheimer's dementia, DM, HTN, BPH, CAD, DJD, dysphagia Subjective Information 76 year old male from SNF. Pt was asleep during visit, unable to be woken up. Per nursing staff, pt with advanced dementia, speech is nonsensical. Spoke to Dr. Ho regarding CCHO diet, obtained order. No significant fat/muscle wasting noted. Avg PO intake 79% of meals, meeting nutritional needs. Current Diet Order/ Nutrition Support Pureed Pertinent Medications Maalox, Novolog, Levemir, MOM, Glucophage, Theragran, Protonix Pertinent Labs POC glucose 93-228 past 3 days Nutritional Hx/Data Height 1.68 m Height (Calculated Centimeters) 167.6 Current Weight (lbs) 77.7 kg Weight (Calculated Kilograms) 77.7 Weight (Calculated Grams) 88762.4 [place] Body Weight 142 Weight Status Overweight GI Symptoms Skin Integrity/Comment: Chris 18. Skin intact. Current %PO Good (75-100%) Estimated Nutritional Goals Calories/Kcals/Kg IBW 142lb/64.5kg Kcals Calculated 1613-1935kcal (25-30kcal/kg) Protein g/kg: IBW Protein Calculated 65g (1g/kg) Fluid: ml 1613-1935ml (1ml/kcal) Nutritional Problem 1. Problem Problem Altered nutrition related laboratory values related to Etiology DM aeb Signs/Symptoms: H&P, elevated POC glucose, on DM medications Intervention/Recommendation Comments 1. Recommend [id number] pureed. DM noted in H&P with elevated POC glucose highest at 278 since adm. Discussed with MD. Avg PO intake is adequate. Expected Outcomes/Goals Expected Outcomes/Goals 1. PO intake continue to meet at least 75% of estimated nutritional needs.
[2017-02-22] MEDS: Insulin Detemir 100 units/mL 10mL Vial SUBQ SCH (21:08)
--- NOTE | 2017-02-23 01:35 | Progress Notes ---
DATE: 02/22/2017 SUBJECTIVE: Chart reviewed and the patient interviewed. Also discussed the patient's condition with the staff and reviewed records and labs. The patient is still agitated and is still in irritable and angry mood. The patient also is still actively responding to stimuli and is still up to self. The patient also is still easily agitated. The patient also still has disorganized thoughts and his thought processes are a bit circumstantial and tangential with flight of ideas. The patient denies any side effects of medications and he has been compliant with taking his medications. ASSESSMENT: The patient is still psychotic and agitated. TREATMENT PLAN: We will continue monitoring his condition and his behavior closely. Also, we will increase Seroquel to 12.5 mg twice a day and we will continue to follow up. JOB# [id number]
[2017-02-23] MEDS: INSULIN ASPART SLIDING SCALE 100 UNITS/ML UNIT SUBQ SCH ×4 (06:29→21:10)
[2017-02-23] MEDS: Aspirin 81mg Chewable Tab PO SCH (10:22)
[2017-02-23] MEDS: Multivitamin Tab PO SCH (10:22)
[2017-02-23] MEDS: Pantoprazole 40 mg EC Tab PO SCH (10:23)
--- NOTE | 2017-02-23 19:52 | Internal Medicine Prog Note ---
Internal Medicine Subjective - Subjective Patient seen and examined:: with staff, chart reviewed Patient is:: awake, verbal, interactive Per staff patient is:: no adverse event, confused Internal Medicine Objective - Results Result Diagrams: 02/07/17 16:45 02/07/17 16:45 Recent Labs: Laboratory Last Values WBC 6.2 Th/cmm (4.8-10.8) 02/07/17 16:45 RBC 4.61 Mil/cmm (3.80-5.80) 02/07/17 16:45 Hgb 13.2 gm/dL (12.6-17.4) 02/07/17 16:45 Hct 40.7 % (39.0-49.0) 02/07/17 16:45 MCV 88.2 fl (80-99) 02/07/17 16:45 MCH 28.7 pg (27.0-31.0) 02/07/17 16:45 MCHC Differential 32.5 pg (28.0-36.0) 02/07/17 16:45 RDW 14.1 % (11.5-20.0) 02/07/17 16:45 Plt Count 329 Th/cmm (150-400) 02/07/17 16:45 MPV 7.9 fl 02/07/17 16:45 Neutrophils % 36.7 % (40.0-80.0) L 02/07/17 16:45 Lymphocytes % 51.0 % (20.0-50.0) H 02/07/17 16:45 Monocytes % 6.1 % (2.0-10.0) 02/07/17 16:45 Eosinophils % 5.6 % (0.0-5.0) H 02/07/17 16:45 Basophils % 0.6 % (0.0-2.0) 02/07/17 16:45 Sodium 140 mEq/L (136-145) 02/07/17 16:45 Potassium 4.0 mEq/L (3.5-5.1) 02/07/17 16:45 Chloride 103 mEq/L (98-107) 02/07/17 16:45 Carbon Dioxide 31.0 mEq/L (21.0-31.0) 02/07/17 16:45 Anion Gap 10.0 (7.0-16.0) 02/07/17 16:45 BUN 10 mg/dL (7-25) 02/07/17 16:45 Creatinine 0.9 mg/dL (0.7-1.3) 02/07/17 16:45 Est GFR ( Amer) TNP 02/07/17 16:45 Est GFR (Non-Af Amer) TNP 02/07/17 16:45 BUN/Creatinine Ratio 11.1 02/07/17 16:45 Glucose 75 mg/dL (70-105) 02/07/17 16:45 POC Glucose 146 MG/DL (70 - 105) H 02/23/17 17:29 Calcium 9.8 mg/dL (8.6-10.3) 02/07/17 16:45 Urine Source CLEAN C 02/07/17 17:15 Urine Color YELLOW 02/07/17 17:15 Urine Clarity CLEAR (CLEAR) 02/07/17 17:15 Urine pH 6.0 02/07/17 17:15 Ur Specific [place] 1.015 (1.005-1.030) 02/07/17 17:15 Urine Protein NEGATIVE mg/dL (NEGATIVE) 02/07/17 17:15 Urine Glucose (UA) NEGATIVE mg/dL (NEGATIVE) 02/07/17 17:15 Urine Ketones NEGATIVE mg/dL (NEGATIVE) 02/07/17 17:15 Urine Blood NEGATIVE (NEGATIVE) 02/07/17 17:15 Urine Nitrate NEGATIVE (NEGATIVE) 02/07/17 17:15 Urine Bilirubin NEGATIVE (NEGATIVE) 02/07/17 17:15 Urine Urobilinogen 1.0 E.U./dL (0.2 - 1.0) 02/07/17 17:15 Ur Leukocyte Esterase TRACE (NEGATIVE) H 02/07/17 17:15 Urine RBC NONE SEEN /hpf (0-5) 02/07/17 17:15 Urine WBC 2-5 /hpf (0-5) H 02/07/17 17:15 Ur Epithelial Cells NONE SEEN /lpf (FEW) 02/07/17 17:15 Urine Bacteria NONE SEEN /hpf (NONE SEEN) 02/07/17 17:15 Urine Opiates Screen NEGATIVE (NEGATIVE) 02/07/17 17:15 Urine Methadone Screen NEGATIVE (NEGATIVE) 02/07/17 17:15 Ur Barbiturates Screen NEGATIVE (NEGATIVE) 02/07/17 17:15 Valproic Acid 39.1 ug/mL (50.0-100.0) L 02/16/17 06:05 Ur Tricyclics Screen NEGATIVE (NEGATIVE) 02/07/17 17:15 Ur Phencyclidine Scrn NEGATIVE (NEGATIVE) 02/07/17 17:15 Amphetamines Screen NEGATIVE (NEGATIVE) 02/07/17 17:15 U Methamphetamines Scrn NEGATIVE (NEGATIVE) 02/07/17 17:15 U Benzodiazepines Scrn POSITIVE (NEGATIVE) H 02/07/17 17:15 U Cocaine Metab Screen NEGATIVE (NEGATIVE) 02/07/17 17:15 U Cannabinoids Screen NEGATIVE (NEGATIVE) 02/07/17 17:15 Ethyl Alcohol < 10 mg/dL (0-10) 02/07/17 16:45 - Physical Exam Vitals and I&O: Vital Signs Temp 97 F 02/23/17 18:17 Pulse 87 02/23/17 18:17 Resp 18 02/23/17 18:17 BP 116/52 02/23/17 18:17 Pulse Ox 97 02/23/17 18:17 Intake & Output 02/23/17 02/23/17 02/24/17 06:59 18:59 06:59 Intake Total 500 Balance 500 Intake: Oral 500 Other: # Voids 2 # Bowel Movements 1 Stool Characteristics Soft Active Medications: Current Medications Al Hydrox/Mg Hydrox/Simethicone (Maalox) 30 ml PO Q4HR PRN PRN Reason: GI DISTRESS Stop: 04/08/17 20:08 Aspirin (Aspirin Chewable) 81 mg PO DAILY FEI Stop: 04/09/17 08:59 Last Admin: 02/23/17 10:22 Dose: 81 mg Divalproex Sodium (Depakote Sprinkle) 500 mg PO HS FEI PRN Reason: Protocol Stop: 04/09/17 20:59 Last Admin: 02/22/17 20:40 Dose: 500 mg Donepezil HCl (Aricept) 10 mg PO HS [facility] Stop: 04/11/17 12:05 Last Admin: 02/22/17 20:40 Dose: 10 mg Escitalopram Oxalate (Lexapro) 5 mg PO DAILY FEI PRN Reason: Protocol Stop: 04/18/17 10:59 Last Admin: 02/23/17 10:22 Dose: 5 mg Insulin Aspart (Novolog Insulin Sliding Scale) 0 units SUBQ ACHS FEI PRN Reason: Protocol Stop: 04/08/17 20:59 Last Admin: 02/23/17 17:49 Dose: Not Given Insulin Detemir (Levemir Insulin) 10 units SUBQ HS FEI PRN Reason: Protocol Stop: 04/08/17 20:59 Last Admin: 02/22/17 21:08 Dose: 10 units Lorazepam (Ativan) 1 mg PO Q4HR PRN; Protocol PRN Reason: Anxiety Stop: 03/09/17 20:08 Last Admin: 02/23/17 10:22 Dose: 1 mg Magnesium Hydroxide (Milk Of Magnesia) 30 ml PO DAILY PRN PRN Reason: Constipation Stop: 04/12/17 17:12 Memantine (Namenda) 10 mg PO HS FEI Stop: 04/16/17 20:59 Last Admin: 02/22/17 20:41 Dose: 10 mg Metformin HCl (Glucophage) 500 mg PO BIDWM FEI Stop: 04/09/17 07:59 Last Admin: 02/23/17 18:40 Dose: Not Given Multivitamins/Vitamin C (Theragran) 1 tab PO DAILY FEI Stop: 04/09/17 08:59 Last Admin: 02/23/17 10:22 Dose: 1 tab Pantoprazole Sodium (Protonix) 40 mg PO DAILY FEI Stop: 04/09/17 08:59 Last Admin: 02/23/17 10:23 Dose: 40 mg Quetiapine Fumarate (Seroquel) 12.5 mg PO BID FEI PRN Reason: Protocol Stop: 04/23/17 16:59 Last Admin: 02/23/17 18:40 Dose: Not Given Zolpidem Tartrate (Ambien) 5 mg PO HS PRN PRN Reason: Insomnia Stop: 04/08/17 20:08 Last Admin: 02/18/17 20:42 Dose: 5 mg General: demented HEENT: NC/AT, PERRLA Neck: Supple, No JVD Lungs: CTAB Cardiovascular: RRR, Normal S1, Normal S2 Abdomen: soft non-tender, globular, non-distended, positive bowel sound Extremities: excoriation, contracture Neurological: no change, disorganized - Procedures Procedures: Procedures Procedure Code Date ECG MONIT/REPRT UP TO 48 HRS 84102 09/05/95 ELECTROCARDIOGRAPH MONIT 89.54 09/05/95 Internal Medicine Assmt/Plan - Assessment Assessment: DIABETES HTN BPH CAD DJD DEMENTIA PSYCH DISORDER FALL RISK DEBILITY - Plan Plan: cont on ada iss cont on bp meds earline rn Nutritional Asmnt/Malnutr-PDOC - Dietary Evaluation Malnutrition Findings (Please click <Entered> for more info): Nutritional Asmnt/Malnutrition Start: 02/13/17 11: 06 Text: Status: Complete Freq: Document 02/13/17 11:06 GSUN (Rec: 02/13/17 11:23 GSUN [id number]) Nutritional Asmnt/Malnutrition Patient General Information Nutritional Screening Diagnosis Diagnosis Acute exacerbation of psychotic disorder Pertinent Medical Hx/Surgical Hx Advanced Alzheimer's dementia, DM, HTN, BPH, CAD, DJD, dysphagia Subjective Information 76 year old male from SNF. Pt was asleep during visit, unable to be woken up. Per nursing staff, pt with advanced dementia, speech is nonsensical. Spoke to Dr. Ho regarding CCHO diet, obtained order. No significant fat/muscle wasting noted. Avg PO intake 79% of meals, meeting nutritional needs. Current Diet Order/ Nutrition Support Pureed Pertinent Medications Maalox, Novolog, Levemir, MOM, Glucophage, Theragran, Protonix Pertinent Labs POC glucose 93-228 past 3 days Nutritional Hx/Data Height 1.68 m Height (Calculated Centimeters) 167.6 Current Weight (lbs) 77.7 kg Weight (Calculated Kilograms) 77.7 Weight (Calculated Grams) 56376.4 [place] Body Weight 142 Weight Status Overweight GI Symptoms Skin Integrity/Comment: Chris 18. Skin intact. Current %PO Good (75-100%) Estimated Nutritional Goals Calories/Kcals/Kg IBW 142lb/64.5kg Kcals Calculated 1613-1935kcal (25-30kcal/kg) Protein g/kg: IBW Protein Calculated 65g (1g/kg) Fluid: ml 1613-1935ml (1ml/kcal) Nutritional Problem 1. Problem Problem Altered nutrition related laboratory values related to Etiology DM aeb Signs/Symptoms: H&P, elevated POC glucose, on DM medications Intervention/Recommendation Comments 1. Recommend [id number] pureed. DM noted in H&P with elevated POC glucose highest at 278 since adm. Discussed with MD. Avg PO intake is adequate. Expected Outcomes/Goals Expected Outcomes/Goals 1. PO intake continue to meet at least 75% of estimated nutritional needs.
[2017-02-23] MEDS: Insulin Detemir 100 units/mL 10mL Vial SUBQ SCH (21:09)
--- NOTE | 2017-02-23 21:22 | Progress Notes ---
DATE: 02/23/2017 SUBJECTIVE: Chart reviewed and the patient interviewed. Also discussed the patient's condition with the staff and reviewed records and labs. The patient is still easily agitated and irritable. The patient also according to staff was kicking near the table with his feet earlier and yesterday. He is still agitated and in irritable mood and needs lots of redirections. He also still seems to be confused. Otherwise, the patient is compliant with taking his medications with no side effects of medications. ASSESSMENT: The patient is still psychotic. TREATMENT PLAN: We will continue to monitor his behavior and his condition closely. Also, Seroquel was increased yesterday to 12.5 mg twice a day with no side effects. Also, working on discharge plans and the patient might be transferred to today if he was accepted there. JOB# [id number]
[2017-02-24] MEDS: INSULIN ASPART SLIDING SCALE 100 UNITS/ML UNIT SUBQ SCH ×2 (06:58→12:38)
[2017-02-24] MEDS: Pantoprazole 40 mg EC Tab PO SCH (09:05)
[2017-02-24] MEDS: Aspirin 81mg Chewable Tab PO SCH (09:06)
[2017-02-24] MEDS: Multivitamin Tab PO SCH (09:07)
--- NOTE | 2017-02-24 15:31 | Internal Medicine Prog Note ---
Internal Medicine Subjective - Subjective Patient seen and examined:: with staff, chart reviewed Patient is:: awake, verbal, interactive Per staff patient is:: no adverse event, confused Internal Medicine Objective - Results Result Diagrams: 02/07/17 16:45 02/07/17 16:45 Recent Labs: Laboratory Last Values WBC 6.2 Th/cmm (4.8-10.8) 02/07/17 16:45 RBC 4.61 Mil/cmm (3.80-5.80) 02/07/17 16:45 Hgb 13.2 gm/dL (12.6-17.4) 02/07/17 16:45 Hct 40.7 % (39.0-49.0) 02/07/17 16:45 MCV 88.2 fl (80-99) 02/07/17 16:45 MCH 28.7 pg (27.0-31.0) 02/07/17 16:45 MCHC Differential 32.5 pg (28.0-36.0) 02/07/17 16:45 RDW 14.1 % (11.5-20.0) 02/07/17 16:45 Plt Count 329 Th/cmm (150-400) 02/07/17 16:45 MPV 7.9 fl 02/07/17 16:45 Neutrophils % 36.7 % (40.0-80.0) L 02/07/17 16:45 Lymphocytes % 51.0 % (20.0-50.0) H 02/07/17 16:45 Monocytes % 6.1 % (2.0-10.0) 02/07/17 16:45 Eosinophils % 5.6 % (0.0-5.0) H 02/07/17 16:45 Basophils % 0.6 % (0.0-2.0) 02/07/17 16:45 Sodium 140 mEq/L (136-145) 02/07/17 16:45 Potassium 4.0 mEq/L (3.5-5.1) 02/07/17 16:45 Chloride 103 mEq/L (98-107) 02/07/17 16:45 Carbon Dioxide 31.0 mEq/L (21.0-31.0) 02/07/17 16:45 Anion Gap 10.0 (7.0-16.0) 02/07/17 16:45 BUN 10 mg/dL (7-25) 02/07/17 16:45 Creatinine 0.9 mg/dL (0.7-1.3) 02/07/17 16:45 Est GFR ( Amer) TNP 02/07/17 16:45 Est GFR (Non-Af Amer) TNP 02/07/17 16:45 BUN/Creatinine Ratio 11.1 02/07/17 16:45 Glucose 75 mg/dL (70-105) 02/07/17 16:45 POC Glucose 140 MG/DL (70 - 105) H 02/24/17 12:18 Calcium 9.8 mg/dL (8.6-10.3) 02/07/17 16:45 Urine Source CLEAN C 02/07/17 17:15 Urine Color YELLOW 02/07/17 17:15 Urine Clarity CLEAR (CLEAR) 02/07/17 17:15 Urine pH 6.0 02/07/17 17:15 Ur Specific [place] 1.015 (1.005-1.030) 02/07/17 17:15 Urine Protein NEGATIVE mg/dL (NEGATIVE) 02/07/17 17:15 Urine Glucose (UA) NEGATIVE mg/dL (NEGATIVE) 02/07/17 17:15 Urine Ketones NEGATIVE mg/dL (NEGATIVE) 02/07/17 17:15 Urine Blood NEGATIVE (NEGATIVE) 02/07/17 17:15 Urine Nitrate NEGATIVE (NEGATIVE) 02/07/17 17:15 Urine Bilirubin NEGATIVE (NEGATIVE) 02/07/17 17:15 Urine Urobilinogen 1.0 E.U./dL (0.2 - 1.0) 02/07/17 17:15 Ur Leukocyte Esterase TRACE (NEGATIVE) H 02/07/17 17:15 Urine RBC NONE SEEN /hpf (0-5) 02/07/17 17:15 Urine WBC 2-5 /hpf (0-5) H 02/07/17 17:15 Ur Epithelial Cells NONE SEEN /lpf (FEW) 02/07/17 17:15 Urine Bacteria NONE SEEN /hpf (NONE SEEN) 02/07/17 17:15 Urine Opiates Screen NEGATIVE (NEGATIVE) 02/07/17 17:15 Urine Methadone Screen NEGATIVE (NEGATIVE) 02/07/17 17:15 Ur Barbiturates Screen NEGATIVE (NEGATIVE) 02/07/17 17:15 Valproic Acid 39.1 ug/mL (50.0-100.0) L 02/16/17 06:05 Ur Tricyclics Screen NEGATIVE (NEGATIVE) 02/07/17 17:15 Ur Phencyclidine Scrn NEGATIVE (NEGATIVE) 02/07/17 17:15 Amphetamines Screen NEGATIVE (NEGATIVE) 02/07/17 17:15 U Methamphetamines Scrn NEGATIVE (NEGATIVE) 02/07/17 17:15 U Benzodiazepines Scrn POSITIVE (NEGATIVE) H 02/07/17 17:15 U Cocaine Metab Screen NEGATIVE (NEGATIVE) 02/07/17 17:15 U Cannabinoids Screen NEGATIVE (NEGATIVE) 02/07/17 17:15 Ethyl Alcohol < 10 mg/dL (0-10) 02/07/17 16:45 - Physical Exam Vitals and I&O: Vital Signs Temp 97 F 02/23/17 18:17 Pulse 87 02/23/17 18:17 Resp 18 02/23/17 18:17 BP 116/52 02/23/17 18:17 Pulse Ox 97 02/23/17 18:17 Intake & Output 02/23/17 02/24/17 02/24/17 18:59 06:59 18:59 Intake Total 500 Balance 500 Intake: Oral 500 Other: # Voids 2 # Bowel Movements 1 Stool Characteristics Formed Active Medications: Current Medications Al Hydrox/Mg Hydrox/Simethicone (Maalox) 30 ml PO Q4HR PRN PRN Reason: GI DISTRESS Stop: 04/08/17 20:08 Aspirin (Aspirin Chewable) 81 mg PO DAILY FEI Stop: 04/09/17 08:59 Last Admin: 02/24/17 09:06 Dose: 81 mg Divalproex Sodium (Depakote Sprinkle) 500 mg PO HS FEI PRN Reason: Protocol Stop: 04/09/17 20:59 Last Admin: 02/23/17 21:07 Dose: 500 mg Donepezil HCl (Aricept) 10 mg PO HS [facility] Stop: 04/11/17 12:05 Last Admin: 02/23/17 21:08 Dose: 10 mg Escitalopram Oxalate (Lexapro) 5 mg PO DAILY FEI PRN Reason: Protocol Stop: 04/18/17 10:59 Last Admin: 02/24/17 09:06 Dose: 5 mg Insulin Aspart (Novolog Insulin Sliding Scale) 0 units SUBQ ACHS FEI PRN Reason: Protocol Stop: 04/08/17 20:59 Last Admin: 02/24/17 12:38 Dose: Not Given Insulin Detemir (Levemir Insulin) 10 units SUBQ HS FEI PRN Reason: Protocol Stop: 04/08/17 20:59 Last Admin: 02/23/17 21:09 Dose: 10 units Lorazepam (Ativan) 1 mg PO Q4HR PRN; Protocol PRN Reason: Anxiety Stop: 03/09/17 20:08 Last Admin: 02/23/17 10:22 Dose: 1 mg Magnesium Hydroxide (Milk Of Magnesia) 30 ml PO DAILY PRN PRN Reason: Constipation Stop: 04/12/17 17:12 Memantine (Namenda) 10 mg PO HS FEI Stop: 04/16/17 20:59 Last Admin: 02/23/17 21:08 Dose: 10 mg Metformin HCl (Glucophage) 500 mg PO BIDWM FEI Stop: 04/09/17 07:59 Last Admin: 02/24/17 09:06 Dose: 500 mg Multivitamins/Vitamin C (Theragran) 1 tab PO DAILY FEI Stop: 04/09/17 08:59 Last Admin: 02/24/17 09:07 Dose: Not Given Pantoprazole Sodium (Protonix) 40 mg PO DAILY FEI Stop: 04/09/17 08:59 Last Admin: 02/24/17 09:05 Dose: 40 mg Quetiapine Fumarate (Seroquel) 12.5 mg PO BID FEI PRN Reason: Protocol Stop: 04/23/17 16:59 Last Admin: 02/24/17 09:06 Dose: 12.5 mg Zolpidem Tartrate (Ambien) 5 mg PO HS PRN PRN Reason: Insomnia Stop: 04/08/17 20:08 Last Admin: 02/23/17 21:08 Dose: 5 mg General: demented HEENT: NC/AT, PERRLA Neck: Supple, No JVD Lungs: CTAB Cardiovascular: RRR, Normal S1, Normal S2 Abdomen: soft non-tender, globular, positive bowel sound Extremities: excoriation Neurological: no change - Procedures Procedures: Procedures Procedure Code Date ECG MONIT/REPRT UP TO 48 HRS 89570 09/05/95 ELECTROCARDIOGRAPH MONIT 89.54 09/05/95 Internal Medicine Assmt/Plan - Assessment Assessment: DIABETES HTN BPH CAD DJD DEMENTIA PSYCH DISORDER FALL RISK DEBILITY - Plan Plan: cont on ada iss cont on bp meds earline rn Nutritional Asmnt/Malnutr-PDOC - Dietary Evaluation Malnutrition Findings (Please click <Entered> for more info): Nutritional Asmnt/Malnutrition Start: 02/13/17 11: 06 Text: Status: Complete Freq: Document 02/13/17 11:06 GSUN (Rec: 02/13/17 11:23 [email or web address] [id number]) Nutritional Asmnt/Malnutrition Patient General Information Nutritional Screening Diagnosis Diagnosis Acute exacerbation of psychotic disorder Pertinent Medical Hx/Surgical Hx Advanced Alzheimer's dementia, DM, HTN, BPH, CAD, DJD, dysphagia Subjective Information 76 year old male from SNF. Pt was asleep during visit, unable to be woken up. Per nursing staff, pt with advanced dementia, speech is nonsensical. Spoke to Dr. Ho regarding CCHO diet, obtained order. No significant fat/muscle wasting noted. Avg PO intake 79% of meals, meeting nutritional needs. Current Diet Order/ Nutrition Support Pureed Pertinent Medications Maalox, Novolog, Levemir, MOM, Glucophage, Theragran, Protonix Pertinent Labs POC glucose 93-228 past 3 days Nutritional Hx/Data Height 1.68 m Height (Calculated Centimeters) 167.6 Current Weight (lbs) 77.7 kg Weight (Calculated Kilograms) 77.7 Weight (Calculated Grams) 73481.4 [place] Body Weight 142 Weight Status Overweight GI Symptoms Skin Integrity/Comment: Chris 18. Skin intact. Current %PO Good (75-100%) Estimated Nutritional Goals Calories/Kcals/Kg IBW 142lb/64.5kg Kcals Calculated 1613-1935kcal (25-30kcal/kg) Protein g/kg: IBW Protein Calculated 65g (1g/kg) Fluid: ml 1613-1935ml (1ml/kcal) Nutritional Problem 1. Problem Problem Altered nutrition related laboratory values related to Etiology DM aeb Signs/Symptoms: H&P, elevated POC glucose, on DM medications Intervention/Recommendation Comments 1. Recommend DPRH34th pureed. DM noted in H&P with elevated POC glucose highest at 278 since adm. Discussed with . Avg PO intake is adequate. Expected Outcomes/Goals Expected Outcomes/Goals 1. PO intake continue to meet at least 75% of estimated nutritional needs.
--- NOTE | 2017-02-24 18:17 | Discharge Summary ---
DATE OF DISCHARGE: 02/24/2017 FINAL DIAGNOSIS AND PRIMARY DIAGNOSIS: Unspecified psychosis. SECONDARY DIAGNOSIS: Dementia, [id number], with psychotic features. REASON FOR HOSPITALIZATION: The patient was admitted to the hospital because of increased agitation and irritability and aggressive behavior and the patient was unable to follow directions and [facility] HOSPITAL COURSE: The patient continued to be confused and aggressive and easily agitated, especially when helping him with his ADLs. Also, was in irritable and angry mood. The patient also had severe mood swings and he was not able to follow directions. The patient was given Seroquel and the dose adjusted to 12.5 mg twice a day. Gradually, the patient's affect was brighter. The patient was not as agitated. [facility] accepted the patient. PHYSICAL EXAMINATION: The patient showed no acute medical issues. AFTER DISCHARGE PLANS: The patient discharged from the hospital with plans for followup in [facility]. DISCHARGE ACTIVITY: As tolerated. DISCHARGE DIET: Regular. DISCHARGE PSYCHOTROPIC MEDICATIONS: Seroquel 12.5 mg twice a day. EXPECTED OUTCOME AFTER DISCHARGE: Is guarded, but better prognosis except the patient continues to take his psychotropic medications. JOB# [id number]
== END 2017-02-24 15:30 | DRG 885 ==
LOC: ER 16:18 → GERO 18:05
PROVIDERS: ADMIT Psychiatry & Neurology Psychiatry; ATTEND Psychiatry & Neurology Psychiatry
DX: F23 Brief psychotic disorder (principal); E11.9 Type 2 diabetes mellitus without complications; G30.9 Alzheimer's disease, unspecified; F02.80 Dementia in other diseases classified elsewhere, unspecified severity, without behavioral disturbance, psychotic disturbance, mood disturbance, and anxiety; I10 Essential (primary) hypertension; E78.5 Hyperlipidemia, unspecified; F31.9 Bipolar disorder, unspecified; F41.9 Anxiety disorder, unspecified; Z83.3 Family history of diabetes mellitus; Z82.49 Family history of ischemic heart disease and other diseases of the circulatory system; N40.0 Benign prostatic hyperplasia without lower urinary tract symptoms; I25.10 Atherosclerotic heart disease of native coronary artery without angina pectoris; Z88.5 Allergy status to narcotic agent; Z91.81 History of falling
CPT/HCPCS: 36415-UA; 80048-TC; 80164-TC; 80320-TC; 81001-TC; 82948-90; 85025-TC; J1200; J1630; J1815; J2060; Z7610